=== PATIENT | male | born 1980 | race Caucasian/White ===

== ENCOUNTER 2018-04-02 22:00 | Emergency (ER) | payer BC ==
[2018-04-02 22:41] VITALS: BP 129/88; PULSE 79; RESP 18; TEMP 98.6
--- NOTE | 2018-04-02 23:18 | ED ---
Skin/Abscess/FB HPI - General Chief complaint: Skin/Abscess/Foreign Body Stated complaint: FB Butt Cheek Time Seen by Provider: 04/02/18 22:44 Source: patient Mode of arrival: ambulatory Limitations: no limitations - History of Present Illness Initial comments: 38-year-old male patient presents to the emergency department today for evaluation of possible foreign body to the right buttock. Patient states that he administered a testosterone injection and when he pulled the syringe away there no needle on it. Patient states that he did hear a weird click. Patient denies any significant pain to the site. States this is the first time he is instructed to testosterone. He denies any other physical symptoms or concerns. - Related Data Home Medications Medication Instructions Recorded Confirmed Buprenorphine HCl/Naloxone HCl 1 film SL BID 04/02/18 04/02/18 [Suboxone 8 mg-2 mg Sl Film] Lisdexamfetamine Dimesylate 50 mg PO QAM 04/02/18 04/02/18 [Vyvanse] Testosterone Cypionate 200 mg IM Q14D 04/02/18 04/02/18 [Depo-Testosterone] Allergies Allergy/AdvReac Type Severity Reaction Status Date / Time latex Allergy skin Verified 04/02/18 22:50 redness Review of Systems ROS Statement: Those systems with pertinent positive or pertinent negative responses have been documented in the HPI. ROS Other: All systems not noted in ROS Statement are negative. Past Medical History Past Medical History: GERD/Reflux Additional Past Medical History / Comment(s): "HAVING A HARD TIME HAVING STOOL & WITH BLEEDING WITH STOOLS,HAVING A HARD TIME URINATING History of Any Multi-Drug Resistant Organisms: None Reported Past Surgical History: Hernia Repair Past Anesthesia/Blood Transfusion Reactions: No Reported Reaction Past Psychological History: No Psychological Hx Reported Smoking Status: Former smoker Past Alcohol Use History: None Reported Past Drug Use History: None Reported, Opiates - Past Family History Mother Family Medical History: Myocardial Infarction ([place]) Father Additional Family Medical History / Comment(s): ALCOHOLISM General Exam Limitations: no limitations General appearance: alert, in no apparent distress, other (So well-developed, well-nourished adult male patient in no acute distress. Vital signs upon presentation are temperature 98.6F, pulse 79, respirations 18, blood pressure 129/88, pulse ox 98% on room air.) Eye exam: Present: normal appearance, PERRL, EOMI. Absent: scleral icterus, conjunctival injection, periorbital swelling ENT exam: Present: normal exam, normal oropharynx, mucous membranes moist Respiratory exam: Present: normal lung sounds bilaterally. Absent: respiratory distress, wheezes, rales, rhonchi, stridor Cardiovascular Exam: Present: regular rate, normal rhythm, normal heart sounds. Absent: systolic murmur, diastolic murmur, rubs, gallop, clicks Neurological exam: Present: alert, oriented X3, CN II-XII intact Psychiatric exam: Present: normal affect, normal mood Skin exam: Present: warm, dry, intact, normal color, other (Inspection to the right buttock is within normal limits.). Absent: rash Course Vital Signs 04/02/18 22:36 Temperature 98.6 F Pulse Rate 79 Respiratory 18 Rate Blood Pressure 129/88 O2 Sat by Pulse 98 Oximetry Medical Decision Making - Medical Decision Making 38-year-old male patient presents the emergency department today for evaluation of possible foreign body to the right gluteus. The patient self-administered a testosterone injection. Appears that his syringe is a sulfur tracting syringe. We did perform x-ray showed no radiopaque foreign body. He is instructed to follow-up with his primary doctor for recheck in 1-2 days. Return parameters discussed in detail. He verbalizes understanding and agrees this plan. - Radiology Data Radiology results: report reviewed, image reviewed Single view of the pelvis was obtained. Findings show pelvic ring is intact. Proximal femurs and hip joints appear normal. I see no evidence for radiopaque foreign body. Impression by Dr. Núñez shows no foreign body seen. Disposition Clinical Impression: Feared condition not demonstrated Disposition: HOME SELF-CARE Condition: Good Additional Instructions: There is no evidence of needle on your x-ray. Most likely the needle retracted. Follow-up with your primary care physician for recheck in 1-2 days. Return here immediately for any new, worsening, or concerning symptoms. Is patient prescribed a controlled substance at d/c from ED?: No Referrals: Dayton Welch MD [Primary Care Provider] - 1-2 days Time of Disposition: 23:35
--- NOTE | 2018-04-02 23:27 | XR ---
Pelvis single view. History possible foreign body. Comparison none. FINDINGS: Pelvic ring is intact. Proximal femurs and hip joints appear normal. I see no evidence of radiopaque foreign body. IMPRESSION: No foreign body seen.
== END 2018-04-02 23:47 | disposition home or self-care (01) ==
LOC: EC 22:00
DX: Z71.1 Person with feared health complaint in whom no diagnosis is made (principal); Z87.891 Personal history of nicotine dependence; Z79.899 Other long term (current) drug therapy; Z91.040 Latex allergy status
CPT/HCPCS: 99283

== ENCOUNTER 2019-09-22 09:16 | Emergency (ER) | payer SELFPAY ==
[2019-09-22 09:30] VITALS: BP 125/82; PULSE 90; RESP 18; TEMP 97.5
--- NOTE | 2019-09-22 09:48 | ED ---
ENT HPI - General Chief complaint: ENT Stated complaint: throat pain Time Seen by Provider: 09/22/19 09:35 Source: patient, RN notes reviewed Mode of arrival: ambulatory Limitations: no limitations - History of Present Illness Initial comments: 39-year-old male presents emergency Department with chief complaint of sore throat. Patient's pain has been present for last few days. No known fever but states that his cold. No nasal congestion, ear pain, headache or dizziness no difficulty swallowing states he tried multiple [id number] medications with no relief. - Related Data Home Medications Medication Instructions Recorded Confirmed Buprenorphine HCl/Naloxone HCl 1 film SL BID 04/02/18 04/02/18 [Suboxone 8 mg-2 mg Sl Film] Lisdexamfetamine Dimesylate 50 mg PO QAM 04/02/18 04/02/18 [Vyvanse] Testosterone Cypionate 200 mg IM Q14D 04/02/18 04/02/18 [Depo-Testosterone] Previous Rx's Medication Instructions Recorded Amoxicillin 500 mg PO Q8H #30 capsule 09/22/19 Allergies Allergy/AdvReac Type Severity Reaction Status Date / Time latex Allergy skin Verified 09/22/19 09:27 redness Review of Systems ROS Statement: Those systems with pertinent positive or pertinent negative responses have been documented in the HPI. ROS Other: All systems not noted in ROS Statement are negative. Past Medical History Past Medical History: GERD/Reflux Additional Past Medical History / Comment(s): "HAVING A HARD TIME HAVING STOOL & WITH BLEEDING WITH STOOLS,HAVING A HARD TIME URINATING History of Any Multi-Drug Resistant Organisms: None Reported Past Surgical History: Hernia Repair Past Anesthesia/Blood Transfusion Reactions: No Reported Reaction Past Psychological History: No Psychological Hx Reported Smoking Status: Former smoker Past Alcohol Use History: Occasional Past Drug Use History: None Reported, Opiates - Past Family History Mother Family Medical History: Myocardial Infarction ([place]) Father Additional Family Medical History / Comment(s): ALCOHOLISM General Exam Limitations: no limitations General appearance: alert, in no apparent distress Head exam: Present: atraumatic, normocephalic, normal inspection Eye exam: Present: normal appearance, PERRL, EOMI. Absent: scleral icterus, conjunctival injection, periorbital swelling ENT exam: Present: mucous membranes moist, TM's normal bilaterally, normal external ear exam. Absent: normal oropharynx (Erythema, sores noted) Neck exam: Present: normal inspection, full ROM, lymphadenopathy. Absent: tenderness, meningismus Respiratory exam: Present: normal lung sounds bilaterally. Absent: respiratory distress, wheezes, rales, rhonchi, stridor Cardiovascular Exam: Present: regular rate, normal rhythm, normal heart sounds. Absent: systolic murmur, diastolic murmur, rubs, gallop, clicks Course Vital Signs 09/22/19 09:28 Temperature 97.5 F L Pulse Rate 90 Respiratory 18 Rate Blood Pressure 125/82 O2 Sat by Pulse 99 Oximetry Medical Decision Making - Medical Decision Making Patient was treated with amoxicillin for strep pharyngitis. Patient advised to continue time Motrin saw or gargles return parameters were discussed. Disposition Clinical Impression: Acute pharyngitis Disposition: HOME SELF-CARE Condition: Stable Instructions (If sedation given, give patient instructions): Pharyngitis (ED) Additional Instructions: Please return to the Emergency Department if symptoms worsen or any other concerns. Prescriptions: Amoxicillin 500 mg PO Q8H #30 capsule Is patient prescribed a controlled substance at d/c from ED?: No Referrals: Dayton Welch MD [Primary Care Provider] - 1-2 days Time of Disposition: 09:48
== END 2019-09-22 09:51 | disposition home or self-care (01) ==
LOC: EC 09:16
DX: J02.9 Acute pharyngitis, unspecified (principal); Z87.891 Personal history of nicotine dependence; Z91.040 Latex allergy status; Z79.890 Hormone replacement therapy
CPT/HCPCS: 99282

== ENCOUNTER 2020-03-27 16:37 | Emergency (ER) | payer OTHER ==
[2020-03-27] MEDS ORDERED: LORazepam 2 MG/ML INJ IV PRN ×3 (17:00)
[2020-03-27] MEDS ORDERED: SODIUM CHLORIDE 0.9% 1,000 ML IV STA (17:00)
[2020-03-27] MEDS ORDERED: LORazepam 2 MG/ML INJ IV STA (17:00)
[2020-03-27] MEDS ORDERED: THIAMINE 100 MG/ML 2 ML VIAL IM STA (17:00)
--- NOTE | 2020-03-27 17:05 | ED ---
General Adult HPI - General Chief complaint: Alcohol Stated complaint: detox Time Seen by Provider: 03/27/20 16:44 Source: patient, RN notes reviewed, old records reviewed Mode of arrival: ambulatory Limitations: no limitations - History of Present Illness Initial comments: 40-year-old male patient presents to ED for evaluation of alcohol addiction. Patient reports that he previously had issues with alcohol over he stopping for a long time however he began drinking for the last 5 months. He reports that he was drinking about a fifth a day for the last week. Reports that he tried to stop the last few days however has been having a lot of issues with shaking and he also gets very nauseous and some vomiting. He denies ever having seizures before. Denies any recent falls or trauma or any other drug use. Denies any other complaints. Systemic: Pt denies fatigue, fever/chills, rash. Pt denies weakness, night sweats, weight loss. Neuro: Pt denies headache, visual disturbances, syncope or pre-syncope. HEENT: Pt denies ocular discharge or irritation, otalgia, rhinorrhea, pharyngitis or notable lymphadenopathy. Cardiopulmonary: Pt denies chest pain, SOB, heart palpitations, dyspnea on exertion. Abdominal/GI: Pt denies abdominal pain, diarrhea. : Pt denies dysuria, burning w/ urination, frequency/urgency. Denies new onset urinary or bowel incontinence. MSK: Pt denies myalgia, loss of strength or function in extremities. Neuro: Pt denies new onset weakness, paresthesias. - Related Data Home Medications Medication Instructions Recorded Confirmed Citalopram Hydrobromide [CeleXA] 40 mg PO DAILY 03/27/20 03/27/20 diazePAM [Valium] 5 mg PO DAILY 03/27/20 03/27/20 Previous Rx's Medication Instructions Recorded Potassium Chloride ER [K-Dur 20] 20 meq PO DAILY 3 Days #3 tab 03/27/20 chlordiazePOXIDE HCl [Librium] 25 mg PO DIRECTED #20 capsule 03/27/20 Allergies Allergy/AdvReac Type Severity Reaction Status Date / Time latex Allergy Rash/Hives Verified 03/27/20 17:37 Review of Systems ROS Statement: Those systems with pertinent positive or pertinent negative responses have been documented in the HPI. ROS Other: All systems not noted in ROS Statement are negative. Past Medical History Past Medical History: GERD/Reflux Additional Past Medical History / Comment(s): "HAVING A HARD TIME HAVING STOOL & WITH BLEEDING WITH STOOLS,HAVING A HARD TIME URINATING History of Any Multi-Drug Resistant Organisms: None Reported Past Surgical History: Hernia Repair Past Anesthesia/Blood Transfusion Reactions: No Reported Reaction Past Psychological History: No Psychological Hx Reported Smoking Status: Current every day smoker Past Alcohol Use History: Daily, Heavy Past Drug Use History: None Reported, Opiates - Past Family History Mother Family Medical History: Myocardial Infarction (ID) Father Additional Family Medical History / Comment(s): ALCOHOLISM General Exam - General Exam Comments Initial Comments: Constitutional: NAD, AOX3, Pt has pleasant affect. HEENT: NC/AT, trachea midline, neck supple, no lymphadenopathy. Posterior phar ynx non erythematous, without exudates. External ears appear normal, without discharge. Mucous membranes moist. Eyes PERRLA, EOM intact. There is no scleral icterus. No pallor noted. Cardiopulmonary: RRR, no murmurs, rubs or gallops, no JVD noted. Lungs CTAB in anterior and posterior de [place]ant[place]. No peripheral edema. Abdominal exam: Abdomen soft and non-distended. No focal area of tenderness. Antoine sign negative.. Bowel sounds active in LLQ. No hepatosplenomegaly. No ecchymosis Neuro: CN II-XII grossly intact. No nuchal rigidity. No raccon eyes, no han sign, no hemotympanum. No cervical spinal tenderness. MSK: No posterior calf tenderness bilaterally, homans sign negative bilaterally. Posterior tibialis and radial pulse +2 bilaterally. Sensation intact in upper and lower extremities. Full active ROM in upper and lower extremities, 5/5 stregnth. Limitations: no limitations Course Vital Signs 03/27/20 03/27/20 03/27/20 16:40 17:43 19:25 Temperature 99.1 F 98.2 F Pulse Rate 100 83 86 Respiratory 18 16 18 Rate Blood Pressure 136/94 131/97 127/84 O2 Sat by Pulse 99 98 96 Oximetry 03/27/20 20:40 Temperature 98.3 F Pulse Rate 78 Respiratory 16 Rate Blood Pressure 121/91 O2 Sat by Pulse 96 Oximetry Medical Decision Making - Medical Decision Making 40-year-old male patient presents to ED for evaluation of alcohol withdrawals. Patient reports that he last drank yesterday. Patient reports that he is feeling somewhat tremulous at the nausea and vomiting earlier today. Denies any other complaints at this time. Physical exam didn't display patient to have mild tremulousness. Laboratory investigations revealed mild hyponatremia hypokalemia. The testing was supplemented [facility]. Mild transaminitis is noted. Serum alcohol is negative. Patient is feeling much improved. I did recommend patient hospital admission pt is declining. Patient reports that his girlfriend is a strong support system and will monitor him at home. Patient discharged with Librium as well as potassium supplementation. He was provided information for a local rehabilitationt facility. Denies any other complaints at this time. Case discussed with Dr. Tejada. - Lab Data Result diagrams: 03/27/20 17:02 03/27/20 17:02 Lab Results 03/27/20 03/27/20 03/27/20 Range/Units 17:02 17:02 17:08 WBC 9.4 (3.8-10.6) k/uL RBC 5.02 (4.30-5.90) m/uL Hgb 17.2 (13.0-17.5) gm/dL Hct 47.3 (39.0-53.0) % MCV 94.3 (80.0-100.0) fL MCH 34.2 (25.0-35.0) pg MCHC 36.3 (31.0-37.0) g/dL RDW 14.8 (11.5-15.5) % Plt Count 223 (150-450) k/uL Neutrophils % 85 % Lymphocytes % 5 % Monocytes % 8 % Eosinophils % 1 % Basophils % 0 % Neutrophils # 7.9 H (1.3-7.7) k/uL Lymphocytes # 0.5 L (1.0-4.8) k/uL Monocytes # 0.8 (0-1.0) k/uL Eosinophils # 0.1 (0-0.7) k/uL Basophils # 0.0 (0-0.2) k/uL Sodium 132 L (137-145) mmol/L Potassium 2.9 L (3.5-5.1) mmol/L Chloride 90 L (98-107) mmol/L Carbon Dioxide 29 (22-30) mmol/L Anion Gap 13 mmol/L BUN 11 (9-20) mg/dL Creatinine 0.65 L (0.66-1.25) mg/dL Est GFR (CKD-EPI)AfAm >90 (>60 ml/min/1.73 sqM) Est GFR (CKD-EPI)NonAf >90 (>60 ml/min/1.73 sqM) Glucose 115 H (74-99) mg/dL POC Glucose (mg/dL) 113 H (75-99) mg/dL POC Glu Election Supervisor ID Kait Medina Calcium 9.8 (8.4-10.2) mg/dL Phosphorus 2.6 (2.5-4.5) mg/dL Magnesium 1.8 (1.6-2.3) mg/dL Total Bilirubin 1.6 H (0.2-1.3) mg/dL AST 63 H (17-59) U/L ALT 67 H (4-49) U/L Alkaline Phosphatase 169 H (38-126) U/L Total Protein 8.0 (6.3-8.2) g/dL Albumin 4.5 (3.5-5.0) g/dL Urine Color Urine Appearance (Clear) Urine pH (5.0-8.0) Ur Specific Harrison (1.001-1.035) Urine Protein (Negative) Urine Glucose (UA) (Negative) Urine Ketones (Negative) Urine Blood (Negative) Urine Nitrite (Negative) Urine Bilirubin (Negative) Urine Urobilinogen (<2.0) mg/dL Ur Leukocyte Esterase (Negative) Urine RBC (0-5) /hpf Urine WBC (0-5) /hpf Ur Squamous Epith Cells (0-4) /hpf Urine Mucus (None) /hpf Urine Opiates Screen (NotDetected) Ur Oxycodone Screen (NotDetected) Urine Methadone Screen (NotDetected) Ur Propoxyphene Screen (NotDetected) Ur Barbiturates Screen (NotDetected) U Tricyclic Antidepress (NotDetected) Ur Phencyclidine Scrn (NotDetected) Ur Amphetamines Screen (NotDetected) U Methamphetamines Scrn (NotDetected) U Benzodiazepines Scrn (NotDetected) Urine Cocaine Screen (NotDetected) U Marijuana (THC) Screen (NotDetected) Serum Alcohol <10 mg/dL 07/21/20 Range/Units 19:22 WBC (3.8-10.6) k/uL RBC (4.30-5.90) m/uL Hgb (13.0-17.5) gm/dL Hct (39.0-53.0) % MCV (80.0-100.0) fL MCH (25.0-35.0) pg MCHC (31.0-37.0) g/dL RDW (11.5-15.5) % Plt Count (150-450) k/uL Neutrophils % % Lymphocytes % % Monocytes % % Eosinophils % % Basophils % % Neutrophils # (1.3-7.7) k/uL Lymphocytes # (1.0-4.8) k/uL Monocytes # (0-1.0) k/uL Eosinophils # (0-0.7) k/uL Basophils # (0-0.2) k/uL Sodium (137-145) mmol/L Potassium (3.5-5.1) mmol/L Chloride (98-107) mmol/L Carbon Dioxide (22-30) mmol/L Anion Gap mmol/L BUN (9-20) mg/dL Creatinine (0.66-1.25) mg/dL Est GFR (CKD-EPI)AfAm (>60 ml/min/1.73 sqM) Est GFR (CKD-EPI)NonAf (>60 ml/min/1.73 sqM) Glucose (74-99) mg/dL POC Glucose (mg/dL) (75-99) mg/dL POC Glu Election Supervisor ID Calcium (8.4-10.2) mg/dL Phosphorus (2.5-4.5) mg/dL Magnesium (1.6-2.3) mg/dL Total Bilirubin (0.2-1.3) mg/dL AST (17-59) U/L ALT (4-49) U/L Alkaline Phosphatase (38-126) U/L Total Protein (6.3-8.2) g/dL Albumin (3.5-5.0) g/dL Urine Color Yellow Urine Appearance Clear (Clear) Urine pH 6.5 (5.0-8.0) Ur Specific Harrison 1.024 (1.001-1.035) Urine Protein 1+ H (Negative) Urine Glucose (UA) Negative (Negative) Urine Ketones 1+ H (Negative) Urine Blood Negative (Negative) Urine Nitrite Negative (Negative) Urine Bilirubin 1+ H (Negative) Urine Urobilinogen >12.0 (<2.0) mg/dL Ur Leukocyte Esterase Negative (Negative) Urine RBC <1 (0-5) /hpf Urine WBC 1 (0-5) /hpf Ur Squamous Epith Cells <1 (0-4) /hpf Urine Mucus Occasional H (None) /hpf Urine Opiates Screen Not Detected (NotDetected) Ur Oxycodone Screen Not Detected (NotDetected) Urine Methadone Screen Not Detected (NotDetected) Ur Propoxyphene Screen Not Detected (NotDetected) Ur Barbiturates Screen Not Detected (NotDetected) U Tricyclic Antidepress Not Detected (NotDetected) Ur Phencyclidine Scrn Not Detected (NotDetected) Ur Amphetamines Screen Not Detected (NotDetected) U Methamphetamines Scrn Not Detected (NotDetected) U Benzodiazepines Scrn Detected H (NotDetected) Urine Cocaine Screen Not Detected (NotDetected) U Marijuana (THC) Screen Not Detected (NotDetected) Serum Alcohol mg/dL Disposition Clinical Impression: Alcohol abuse, Hypokalemia Disposition: HOME SELF-CARE Condition: Stable Instructions (If sedation given, give patient instructions): Alcohol Withdrawal (ED) Additional Instructions: Follow-up with primary care provider tomorrow. I have provided you information for a local rehabilitation center at your request. Take the medication as directed for alcohol withdrawal. Return to ER if condition worsens. [facility]: [address] [facility], [address] P: [phone] F: [phone] Prescriptions: Potassium Chloride ER [K-Dur 20] 20 meq PO DAILY 3 Days #3 tab chlordiazePOXIDE HCl [Librium] 25 mg PO DIRECTED #20 capsule Is patient prescribed a controlled substance at d/c from ED?: No Referrals: Dayton Welch MD [Primary Care Provider] - 1-2 days
[2020-03-27 17:09] LABS: Glucose,Whole Blood 113 mg/dL (75-99)
[2020-03-27 17:15] LABS: Basophils % (A) 0 %; Eosinophils # (A) 0.1 k/uL (0-0.7); Eosinophils % (A) 1 %; HCT 47.3 % (39.0-53.0); HGB 17.2 gm/dL (13.0-17.5); Lymphocytes # (A) 0.5 k/uL (1.0-4.8); Lymphocytes % (A) 5 %; MCH 34.2 pg (25.0-35.0); MCHC 36.3 g/dL (31.0-37.0); MCV 94.3 fL (80.0-100.0); Monocytes # (A) 0.8 k/uL (0-1.0); Monocytes % (A) 8 %; Neutrophils # (A) 7.9 k/uL (1.3-7.7); Neutrophils % (A) 85 %; Platelet Count 223 k/uL (150-450); RBC 5.02 m/uL (4.30-5.90); RDW 14.8 % (11.5-15.5); WBC 9.4 k/uL (3.8-10.6)
[2020-03-27] MEDS ORDERED: ONDANSETRON 4 MG/2 ML VIAL IVP STA (17:18)
[2020-03-27 17:26] LABS: ALT 67 U/L (4-49); AST 63 U/L (17-59); African American GFR (CKD) >90 (>60 ml/min/1.73 sqM); Albumin 4.5 g/dL (3.5-5.0); Alcohol <10 mg/dL; Alkaline Phosphatase 169 U/L (38-126); Anion Gap 13 mmol/L; Blood Urea Nitrogen 11 mg/dL (9-20); Calcium 9.8 mg/dL (8.4-10.2); Carbon Dioxide 29 mmol/L (22-30); Chloride 90 mmol/L (98-107); Glucose 115 mg/dL (74-99); Magnesium 1.8 mg/dL (1.6-2.3); Non-African American GFR(CKD) >90 (>60 ml/min/1.73 sqM); Phosphorus 2.6 mg/dL (2.5-4.5); Potassium 2.9 mmol/L (3.5-5.1); Sodium 132 mmol/L (137-145); Total Bilirubin 1.6 mg/dL (0.2-1.3)
[2020-03-27] MEDS ORDERED: POTASSIUM CHLORIDE ER 20 MEQ TAB.ER PO STA (17:54)
[2020-03-27 20:07] LABS: Appearance,Urine Clear (Clear); Bilirubin,Urine 1+ (Negative); Blood,Urine Negative (Negative); Color,Urine Yellow; Glucose,Urine (UA) Negative (Negative); Ketones,Urine 1+ (Negative); Leukocyte Esterase,Urine Negative (Negative); Mucus,Urine Occasional /hpf; Nitrite,Urine Negative (Negative); PH, Urine 6.5 (5.0-8.0); Protein,Urine 1+ (Negative); RBC,Urine <1 /hpf (0-5); Specific Gravity,Urine 1.024 (1.001-1.035); Squamous Epithelial Cell,Urine <1 /hpf (0-4); Urobilinogen,Urine >12.0 mg/dL (<2.0); WBC,Urine 1 /hpf (0-5)
[2020-03-27] MEDS ORDERED: ONDANSETRON 4 MG ODT STARTER PACK 2 TAB BTL PO STA (20:10)
[2020-03-27 20:15] LABS: Amphetamine Screen,Urine Not Detected (NotDetected); Barbiturate Screen,Urine Not Detected (NotDetected); Benzodiazepines Screen,Urine Detected (NotDetected); Cocaine Screen,Urine Not Detected (NotDetected); Methadone Screen, Urine Not Detected (NotDetected); Opiate Screen,Urine Not Detected (NotDetected); Oxycodone Screen, Urine Not Detected (NotDetected); Phencyclidine Screen,Urine Not Detected (NotDetected); Tricyclic Antidepressant,Urine Not Detected (NotDetected); Urn Cannabinoid Scrn Not Detected (NotDetected)
[2020-03-27 20:41] VITALS: BP 121/91; PULSE 78; RESP 16; TEMP 98.3
[2020-03-28] MEDS ORDERED: THIAMINE 100 MG TAB PO SCH (07:30)
== END 2020-03-27 20:41 | disposition home or self-care (01) ==
LOC: EC 16:37
DX: F10.239 Alcohol dependence with withdrawal, unspecified (principal); E87.6 Hypokalemia; E87.1 Hypo-osmolality and hyponatremia; R74.0 Nonspecific elevation of levels of transaminase and lactic acid dehydrogenase [LDH]; F17.200 Nicotine dependence, unspecified, uncomplicated; Z91.040 Latex allergy status
CPT/HCPCS: 36415; 80053; 83735; 84100; 85025; 81001; 80306; 80320; 99284; 96374; 96375; 96376; 96372; 96361; J2060; J3411; J2405; S0119

== ENCOUNTER 2020-04-08 09:21 | Inpatient (IN) | payer OTHER ==
[2020-04-08] MEDS ORDERED: LORazepam 2 MG/ML INJ IV STA (09:41)
[2020-04-08] MEDS ORDERED: SODIUM CHLORIDE 0.9% 500 ML 500 ML IV STA (09:41)
[2020-04-08] MEDS ORDERED: THIAMINE 100 MG/ML 2 ML VIAL IM STA ×2 (09:41→10:21)
--- NOTE | 2020-04-08 09:54 | ED ---
General Adult HPI - General Chief complaint: Alcohol Stated complaint: Detox Time Seen by Provider: 04/08/20 09:29 Source: patient, RN notes reviewed, old records reviewed Mode of arrival: ambulatory Limitations: no limitations - History of Present Illness Initial comments: 40-year-old male patient presents to ED for chief complaint of alcohol abuse and withdrawal. He reports that he has drank about 3 white claws this morning. He reports that he is a daily drinker. Also reports that for the last 3 days he has been having some nausea vomiting and diarrhea. GENERALIZED ABDOMINAL ACHING. He denies any other acute complaints. He states that he is supposed to go to rehabilitation the next day or 2. Systemic: Pt denies fatigue, fever/chills, rash. Pt denies weakness, night sweats, weight loss. Neuro: Pt denies headache, visual disturbances, syncope or pre-syncope. HEENT: Pt denies ocular discharge or irritation, otalgia, rhinorrhea, pharyng itis or notable lymphadenopathy. Cardiopulmonary: Pt denies chest pain, SOB, heart palpitations, dyspnea on exertion. : Pt denies dysuria, burning w/ urination, frequency/urgency. Denies new onset urinary or bowel incontinence. MSK: Pt denies myalgia, loss of strength or function in extremities. Neuro: Pt denies new onset weakness, paresthesias. - Related Data Home Medications Medication Instructions Recorded Confirmed Citalopram Hydrobromide [CeleXA] 40 mg PO DAILY 03/27/20 03/27/20 diazePAM [Valium] 5 mg PO DAILY 03/27/20 03/27/20 Previous Rx's Medication Instructions Recorded Potassium Chloride ER [K-Dur 20] 20 meq PO DAILY 3 Days #3 tab 03/27/20 chlordiazePOXIDE HCl [Librium] 25 mg PO DIRECTED #20 capsule 03/27/20 Allergies Allergy/AdvReac Type Severity Reaction Status Date / Time latex Allergy Rash/Hives Verified 04/08/20 09:27 Review of Systems ROS Statement: Those systems with pertinent positive or pertinent negative responses have been documented in the HPI. ROS Other: All systems not noted in ROS Statement are negative. Past Medical History Past Medical History: GERD/Reflux Additional Past Medical History / Comment(s): alcoholism History of Any Multi-Drug Resistant Organisms: None Reported Past Surgical History: Hernia Repair Past Anesthesia/Blood Transfusion Reactions: No Reported Reaction Past Psychological History: No Psychological Hx Reported Smoking Status: Current every day smoker Past Alcohol Use History: Abuse, Daily, Heavy Past Drug Use History: None Reported, Opiates - Past Family History Mother Family Medical History: Myocardial Infarction ([place]) Father Additional Family Medical History / Comment(s): ALCOHOLISM General Exam - General Exam Comments Initial Comments: Constitutional: NAD, AOX3, Pt has pleasant affect. HEENT: NC/AT, trachea midline, neck supple, no lymphadenopathy. Posterior pharynx non erythematous, without exudates. External ears appear normal, without discharge. Mucous membranes moist. Eyes PERRLA, EOM intact. There is no scleral icterus. No pallor noted. Cardiopulmonary: RRR, no murmurs, rubs or gallops, no JVD noted. Lungs CTAB in anterior and posterior de [place]. No peripheral edema. Abdominal exam: Abdomen soft and non-distended. Abdomen non-tender to palpation in all 4 quadrants. Bowel sounds active in LLQ. No hepatosplenomegaly. No ecchymosis Neuro: CN II-XII intact. No nuchal rigidity. No raccon eyes, no han sign, no hemotympanum. No cervical spinal tenderness. MSK: No posterior calf tenderness bilaterally, homans sign negative bilaterally. Posterior tibialis and radial pulse +2 bilaterally. Sensation intact in upper and lower extremities. Full active ROM in upper and lower extremities, 5/5 stregnth. Limitations: no limitations Course Vital Signs 04/08/20 09:25 Temperature 98.7 F Pulse Rate 74 Respiratory 18 Rate Blood Pressure 110/77 O2 Sat by Pulse 100 Oximetry Medical Decision Making - Medical Decision Making 40-year-old male patient history of alcohol abuse presents to ED for nausea vomiting diarrhea, withdrawals. Patient reports that he is feeling somewhat tremulous. Patient vital signs are stable, afebrile. Physical exam did not dis play acute pathology. Asthma soft and nontender. Patient was not treatments on exam. Labs investigations are significant for elevated lipase of 1100 just with acute pancreatitis. Mag 1.5. Patient be admitted for acute pancreatitis. Case discussed with Dr. Mott. - Lab Data Result diagrams: 04/08/20 09:51 04/08/20 09:51 Lab Results 04/08/20 04/08/20 Range/Units 09:51 09:51 WBC 7.9 (3.8-10.6) k/uL RBC 4.68 (4.30-5.90) m/uL Hgb 15.2 (13.0-17.5) gm/dL Hct 43.6 (39.0-53.0) % MCV 93.1 (80.0-100.0) fL MCH 32.5 (25.0-35.0) pg MCHC 34.9 (31.0-37.0) g/dL RDW 14.2 (11.5-15.5) % Plt Count 112 L (150-450) k/uL Neutrophils % 81 % Lymphocytes % 11 % Monocytes % 5 % Eosinophils % 1 % Basophils % 0 % Neutrophils # 6.4 (1.3-7.7) k/uL Lymphocytes # 0.9 L (1.0-4.8) k/uL Monocytes # 0.4 (0-1.0) k/uL Eosinophils # 0.1 (0-0.7) k/uL Basophils # 0.0 (0-0.2) k/uL Sodium 137 (137-145) mmol/L Potassium 3.5 (3.5-5.1) mmol/L Chloride 101 (98-107) mmol/L Carbon Dioxide 25 (22-30) mmol/L Anion Gap 11 mmol/L BUN 8 L (9-20) mg/dL Creatinine 0.71 (0.66-1.25) mg/dL Est GFR (CKD-EPI)AfAm >90 (>60 ml/min/1.73 sqM) Est GFR (CKD-EPI)NonAf >90 (>60 ml/min/1.73 sqM) Glucose 93 (74-99) mg/dL Calcium 8.9 (8.4-10.2) mg/dL Phosphorus 1.7 L (2.5-4.5) mg/dL Magnesium 1.5 L (1.6-2.3) mg/dL Total Bilirubin 1.4 H (0.2-1.3) mg/dL AST 60 H (17-59) U/L ALT 47 (4-49) U/L Alkaline Phosphatase 100 (38-126) U/L Total Protein 6.9 (6.3-8.2) g/dL Albumin 3.8 (3.5-5.0) g/dL Lipase 1131 H (23-300) U/L Serum Alcohol 67 mg/dL Disposition Clinical Impression: Pancreatitis, Alcohol withdrawal Disposition: ADMITTED IP TO THIS HOSP Condition: Serious Is patient prescribed a controlled substance at d/c from ED?: No Referrals: Dayton Welch MD [Primary Care Provider] - 1-2 days
[2020-04-08 10:06] LABS: Basophils % (A) 0 %; Eosinophils # (A) 0.1 k/uL (0-0.7); Eosinophils % (A) 1 %; HCT 43.6 % (39.0-53.0); HGB 15.2 gm/dL (13.0-17.5); Lymphocytes # (A) 0.9 k/uL (1.0-4.8); Lymphocytes % (A) 11 %; MCH 32.5 pg (25.0-35.0); MCHC 34.9 g/dL (31.0-37.0); MCV 93.1 fL (80.0-100.0); Mean Platelet Volume 8.3; Monocytes # (A) 0.4 k/uL (0-1.0); Monocytes % (A) 5 %; Neutrophils # (A) 6.4 k/uL (1.3-7.7); Neutrophils % (A) 81 %; Platelet Count 112 k/uL (150-450); RBC 4.68 m/uL (4.30-5.90); RDW 14.2 % (11.5-15.5); WBC 7.9 k/uL (3.8-10.6)
[2020-04-08 10:14] LABS: ALT 47 U/L (4-49); AST 60 U/L (17-59); African American GFR (CKD) >90 (>60 ml/min/1.73 sqM); Albumin 3.8 g/dL (3.5-5.0); Alcohol 67 mg/dL; Alkaline Phosphatase 100 U/L (38-126); Anion Gap 11 mmol/L; Blood Urea Nitrogen 8 mg/dL (9-20); Calcium 8.9 mg/dL (8.4-10.2); Carbon Dioxide 25 mmol/L (22-30); Chloride 101 mmol/L (98-107); Glucose 93 mg/dL (74-99); Magnesium 1.5 mg/dL (1.6-2.3); Non-African American GFR(CKD) >90 (>60 ml/min/1.73 sqM); Phosphorus 1.7 mg/dL (2.5-4.5); Potassium 3.5 mmol/L (3.5-5.1); Sodium 137 mmol/L (137-145); Total Bilirubin 1.4 mg/dL (0.2-1.3); Total Protein 6.9 g/dL (6.3-8.2)
[2020-04-08] MEDS ORDERED: LORazepam 2 MG/ML INJ IV PRN ×2 (10:21)
[2020-04-08] MEDS ORDERED: MAGNESIUM OXIDE 400 MG TAB PO STA (10:27)
[2020-04-08] MEDS ORDERED: NALOXONE 0.4 MG/ML 1 ML VIAL IV PRN (10:28)
[2020-04-08] MEDS ORDERED: SODIUM CHLORIDE 0.9% 1,000 ML IV SCH (10:30)
[2020-04-08] MEDS ORDERED: SODIUM CHLORIDE 0.9% 500 ML 500 ML IV ONE (10:30)
[2020-04-08] MEDS ORDERED: SODIUM CHLORIDE 0.9% 1,000 ML IV ONE (10:30)
[2020-04-08 11:27] LABS: Glucose,Whole Blood 85 mg/dL (75-99)
[2020-04-08] MEDS ORDERED: METOPROLOL TARTRATE 12.5 MG TAB PO SCH (13:46)
[2020-04-08] MEDS: diazePAM 5 MG TAB PO SCH ×2 (15:14→21:49)
[2020-04-08] MEDS: METOPROLOL TARTRATE 12.5 MG TAB PO SCH ×2 (15:14→21:49)
[2020-04-08] MEDS: ENOXAPARIN 40 MG/0.4 ML SYRINGE SQ SCH (15:15)
--- NOTE | 2020-04-08 15:50 | P.HPIM ---
History of Present Illness H&P Date: 04/08/20 Chief Complaint: Nausea vomiting abdominal pain History of presenting complaint: This is a 40-year-old patient of Dr. lunsford from [place]. Patient has been on Suboxone last 6 years for opioid abuse prior to that. Patient has been sober from alcohol for 7 years. 3 months ago patient relapsed and started drinking. Appointment today. It was working at [employer] and I wasn't compared back to 16 hours a week. Patient now presents with 1 week of nausea vomiting for a week. Upper abdominal pain. All sets of intermittent diarrhea. Also had some fever and chills. I gone down. He is rather shaky and an anxious. He has been prescribed 8 mg Suboxone tablets that she cut into smaller pieces to get his correct dose. Review of systems: GEN.: Tired EYES: None HEENT: None NECK: None RESPIRATORY: None CARDIOVASCULAR: None GASTROINTESTINAL: As above GENITOURINARY: None MUSCULOSKELETAL: None LYMPHATICS: None HEMATOLOGICAL: None PSYCHIATRY: Anxious NEUROLOGICAL: None Past medical history to include: Opioid abuse, alcoholism Social history: Patient chews tobacco-prior to that smoked for 13 years about a pack a day.. Did opioid abuse in the past has been on Suboxone for 6 years. Currently unemployed. Was working at [employer]. Lives alone. History of alcoholism none in the last 4 years. Except last 3 months Physical examination: VITAL SIGNS: 98.7, 74, 18, 110/77, 100% on room air GENERAL: BMI 21.5, sitting on bed, slightly jittery. EYES: Pupils equal. Conjunctiva normal. HEENT: External appearance of nose and ears normal, oral cavity grossly normal. NECK: JVD not raised; masses not palpable. HEART: First and second heart sounds are normal; no edema. LUNGS: Respiratory rate normal; clear to auscultation. ABDOMEN: Soft, mild epigastric tenderness, no guarding rigidity, liver spleen not palpable, no masses palpable. PSYCH: [Alert and oriented x3; mood and affect anxious l. NEUROLOGICAL: Cranial nerves grossly intact; no facial asymmetry, power and sensation grossly intact. Minimal tremors LYMPHATICS: No lymph nodes palpable in the axilla and neck INVESTIGATIONS, reviewed in the clinical context: White count 7.9 hemoglobin 15.2 platelets 112 potassium 3.518 creatinine 0.71 phosphorus 1.7 magnesium 1.5 AST 60 ALT 47 Lipase 1131 serum alcohol 67 Assessment: -Acute alcoholic pancreatitis -Alcohol use disorder with alcohol dependence -Early alcohol withdrawal syndrome -Hypomagnesemia, hypophosphatemia -Alcoholic hepatitis -Thrombocytopenia due to alcoholism -Chewing tobacco dependence Plan: For the alcohol withdrawal syndrome patient be started on Valium 5 mg every 8 hours. Also add Lopressor 12.5 mg 3 times a day to cut back on the sympathetic drive. Lovenox for DVT prophylaxis. Nicotine patch. IV fluids. No form of D5W. Lipase magnesium and phosphorus. CIWA scale. Care was discussed with the patient question and answer Past Medical History Past Medical History: GERD/Reflux Additional Past Medical History / Comment(s): alcoholism History of Any Multi-Drug Resistant Organisms: None Reported Past Surgical History: Hernia Repair Past Anesthesia/Blood Transfusion Reactions: No Reported Reaction Past Psychological History: No Psychological Hx Reported Smoking Status: Current every day smoker Past Alcohol Use History: Abuse, Daily, Heavy Additional Past Alcohol Use History / Comment(s): SMOKED FOR 13 YRS -1PPD,HX ALCOHOLISM-NONE IN LAST 4 YRS Past Drug Use History: None Reported, Opiates Additional Drug Use History / Comment(s): NO OPIATE USE LAST 4 YRS - Past Family History Mother Family Medical History: Myocardial Infarction ([place]) Father Additional Family Medical History / Comment(s): ALCOHOLISM Medications and Allergies Home Medications Medication Instructions Recorded Confirmed Type No Known Home Medications 04/08/20 04/08/20 History Allergies Allergy/AdvReac Type Severity Reaction Status Date / Time latex Allergy Rash/Hives Verified 04/08/20 10:52 Physical Exam Vitals: Vital Signs Temp Pulse Pulse Resp BP BP Pulse Ox 04/08/20 14:07 62 18 04/08/20 13:40 98.8 F 62 18 142/84 98 04/08/20 11:03 98.7 F 70 18 119/75 100 04/08/20 10:27 18 04/08/20 09:27 18 04/08/20 09:25 98.7 F 74 18 110/77 100 Intake and Output 04/08/20 04/08/20 04/08/20 06:59 14:59 22:59 Intake Total 300 Balance 300 Intake: Intake, IV Titration 300 Amount Sodium Chloride 0.9% 1, 300 000 ml @ 130 mls/hr IV . Q7H42M ANASTACIO Rx#:[id number] Other: Weight 68.039 kg Results CBC & Chem 7: 04/08/20 09:51 04/08/20 09:51 Labs: Abnormal Lab Results - Last 24 Hours (Table) 04/08/20 04/08/20 Range/Units 09:51 09:51 Plt Count 112 L (150-450) k/uL Lymphocytes # 0.9 L (1.0-4.8) k/uL BUN 8 L (9-20) mg/dL Phosphorus 1.7 L (2.5-4.5) mg/dL Magnesium 1.5 L (1.6-2.3) mg/dL Total Bilirubin 1.4 H (0.2-1.3) mg/dL AST 60 H (17-59) U/L Lipase 1131 H (23-300) U/L Thrombosis Risk Factor Assmnt - Choose All That Apply Any of the Below Risk Factors Present?: No
[2020-04-08] MEDS: CALCIUM CARBONATE LIQUID 500 MG/5 ML CUP PO SCH ×2 (17:10→21:49)
[2020-04-08] MEDS: THIAMINE 100 MG TAB PO SCH (17:10)
[2020-04-08] MEDS: PANTOPRAZOLE 40 MG TABLET PO SCH (17:10)
[2020-04-08] MEDS: MAGNESIUM OXIDE 400 MG TAB PO SCH ×2 (17:10→21:49)
[2020-04-08] MEDS: DEXTROSE 5%-0.45% NACL 1,000 ML IV SCH ×2 (17:10→23:43)
[2020-04-08] MEDS: NICOTINE 21MG/24HR PATCH TRANSDERM SCH (17:10)
[2020-04-08] MEDS: POTAS-SOD-PHOS 278-164-250 MG 1 EACH PACKET PO SCH ×2 (17:59→21:48)
[2020-04-08] MEDS: LORazepam 2 MG/ML INJ IV PRN (19:59)
[2020-04-08] MEDS: MORPHINE SULFATE 4 MG/ML SYRINGE IV PRN (20:04)
[2020-04-08 21:07] LABS: Appearance,Urine Clear (Clear); Bilirubin,Urine Negative (Negative); Blood,Urine Negative (Negative); Color,Urine Yellow; Glucose,Urine (UA) Negative (Negative); Ketones,Urine 1+ (Negative); Leukocyte Esterase,Urine Negative (Negative); Nitrite,Urine Negative (Negative); Protein,Urine Negative (Negative); Specific Gravity,Urine 1.015 (1.001-1.035)
[2020-04-09] MEDS: MORPHINE SULFATE 4 MG/ML SYRINGE IV PRN ×4 (02:35→20:24)
[2020-04-09] MEDS: LORazepam 2 MG/ML INJ IV PRN ×5 (04:29→22:34)
[2020-04-09] MEDS: diazePAM 5 MG TAB PO SCH ×3 (05:59→21:37)
[2020-04-09] MEDS: DEXTROSE 5%-0.45% NACL 1,000 ML IV SCH ×3 (05:59→19:43)
[2020-04-09 07:26] LABS: African American GFR (CKD) >90 (>60 ml/min/1.73 sqM); Anion Gap 5 mmol/L; Blood Urea Nitrogen 4 mg/dL (9-20); Carbon Dioxide 26 mmol/L (22-30); Chloride 105 mmol/L (98-107); Non-African American GFR(CKD) >90 (>60 ml/min/1.73 sqM); Sodium 136 mmol/L (137-145)
[2020-04-09] MEDS: METOPROLOL TARTRATE 12.5 MG TAB PO SCH ×3 (07:37→21:38)
[2020-04-09] MEDS: ENOXAPARIN 40 MG/0.4 ML SYRINGE SQ SCH (07:37)
[2020-04-09] MEDS: MAGNESIUM OXIDE 400 MG TAB PO SCH ×3 (07:37→21:37)
[2020-04-09] MEDS: THIAMINE 100 MG TAB PO SCH ×2 (07:37→16:48)
[2020-04-09] MEDS: NICOTINE 21MG/24HR PATCH TRANSDERM SCH (07:37)
[2020-04-09] MEDS: PANTOPRAZOLE 40 MG TABLET PO SCH ×2 (07:38→16:48)
[2020-04-09] MEDS: CALCIUM CARBONATE LIQUID 500 MG/5 ML CUP PO SCH ×4 (07:38→20:23)
[2020-04-09 07:49] LABS: Calcium 8.4 mg/dL (8.4-10.2); Glucose 99 mg/dL (74-99); Magnesium 1.6 mg/dL (1.6-2.3); Phosphorus 2.1 mg/dL (2.5-4.5); Potassium 3.3 mmol/L (3.5-5.1)
--- NOTE | 2020-04-09 20:58 | P.PN ---
Progress Note - Text Progress Note Date: 04/09/20 Chief Complaint: Nausea vomiting abdominal pain History of presenting complaint: This is a 40-year-old patient of Dr. lunsford from [place]. Patient has been on Suboxone last 6 years for opioid abuse prior to that. Patient has been sober from alcohol for 7 years. 3 months ago patient relapsed and started drinking. Appointment today. It was working at [employer] and I wasn't compared back to 16 hours a week. Patient now presents with 1 week of nausea vomiting for a week. Upper abdominal pain. All sets of intermittent diarrhea. Also had some fever and chills. I gone down. He is rather shaky and an anxious. He has been prescribed 8 mg Suboxone tablets that she cut into smaller pieces to get his correct dose. Admitted with acute alcoholic pancreatitis, alcohol use disorder early alcohol withdrawal syndrome. Patient is made nothing by mouth. Started in IV fluids. On Valium and CIWA scale. Today-feeling a bit better. Pain Still Present. No Nausea or Vomiting. Appears More Calm. Review of systems: Was done for constitutional, cardiovascular, GI, pulmonary. relevant finding as above Active Medications Calcium Carbonate/Glycine (Tums Liquid) 500 mg PO ACHS [facility] Last Admin: 04/09/20 20:23 Dose: 500 mg Documented by: Diazepam (Valium) 5 mg PO Q8H [facility] Last Admin: 04/09/20 13:31 Dose: 5 mg Documented by: Enoxaparin Sodium (Lovenox) 40 mg SQ DAILY [facility] Last Admin: 04/09/20 07:37 Dose: 40 mg Documented by: Dextrose/Sodium Chloride (Dextrose 5%-1/2ns Iv Soln) 1,000 mls @ 150 mls/hr IV .Q6H40M [facility] Last Admin: 04/09/20 19:43 Dose: 150 mls/hr Documented by: Lorazepam (Ativan) 1 mg IV Q2HR PRN PRN Reason: CIWA 8 or 9 Last Admin: 04/09/20 17:49 Dose: 1 mg Documented by: Lorazepam (Ativan) 1 mg IV Q1HR PRN PRN Reason: CIWA 10 to 15 Last Admin: 04/08/20 12:47 Dose: 1 mg Documented by: Lorazepam (Ativan) 2 mg IV Q10M PRN PRN Reason: CIWA 16 or higher Stop: 04/10/20 10:21 Magnesium Oxide (Mag-Ox) 400 mg PO TID [facility] Last Admin: 04/09/20 14:32 Dose: 400 mg Documented by: Metoprolol Tartrate (Lopressor) 12.5 mg PO TID [facility] Last Admin: 04/09/20 14:32 Dose: 12.5 mg Documented by: Morphine Sulfate (Morphine Sulfate (Inj)) 4 mg IV Q6HR PRN PRN Reason: Severe Pain Last Admin: 04/09/20 20:24 Dose: 4 mg Documented by: Naloxone HCl (Narcan) 0.2 mg IV Q2M PRN PRN Reason: Opioid Reversal Nicotine (Habitrol 21mg/24hr Patch) 1 patch TRANSDERM DAILY [facility] Last Admin: 04/09/20 07:37 Dose: 1 patch Documented by: Pantoprazole Sodium (Protonix) 40 mg PO AC-BID [facility] Last Admin: 04/09/20 16:48 Dose: 40 mg Documented by: Thiamine HCl (Vitamin B-1) 100 mg PO BID-W/MEALS [facility] Last Admin: 04/09/20 16:48 Dose: 100 mg Documented by: Physical examination: VITAL SIGNS: 98.6, 60, 18, 146/86, 99% room air GENERAL: Sitting up in bed, a bit more calm today EYES: Pupils equal. Conjunctiva normal. HEENT: External appearance of nose and ears normal, oral cavity grossly normal. NECK: JVD not raised; masses not palpable. HEART: First and second heart sounds are normal; no edema. LUNGS: Respiratory rate normal; clear to auscultation. ABDOMEN: Soft, mild epigastric tenderness, no guarding rigidity, liver spleen not palpable, no masses palpable. PSYCH: [Alert and oriented x3; mood and affect a bit less anxious. INVESTIGATIONS, reviewed in the clinical context: Potassium 3.3 creatinine 0.65 phosphorus 2.1, lipase 1006 Previous testing White count 7.9 hemoglobin 15.2 platelets 112 potassium 3.518 creatinine 0.71 phosphorus 1.7 magnesium 1.5 AST 60 ALT 47 Lipase 1131 serum alcohol 67 Assessment: -Acute alcoholic pancreatitis, slowly improving -Alcohol use disorder with alcohol dependence -Early alcohol withdrawal syndrome, improving -Hypomagnesemia, hypophosphatemia, improving -Alcoholic hepatitis -Thrombocytopenia due to alcoholism -Chewing tobacco dependence Plan: Care was discussed with the patient. Started on clear liquids. Was a Valium cut back. Check labs in the morning.
--- NOTE | 2020-04-10 00:20 | CONS ---
CONSULTATION DATE OF DICTATION: 04/09/2020 REASON FOR CONSULTATION: Acute pancreatitis. HISTORY OF PRESENT ILLNESS: The patient is a 40-year-old pleasant white male with history of alcohol abuse, admitted to the hospital with abdominal pain mostly in the epigastric area associated with nausea and vomiting for the last 3 days duration. He stopped drinking a few months ago, but for the last few months he relapsed and has been drinking heavily. He initially had epigastric pain, nausea, vomiting which continued to progressively get worse and hence came into the emergency room, noted to have elevated lipase at . He is feeling somewhat better today. He was started on a clear liquid diet and the epigastric pain has significantly worsened. No further episodes of nausea, vomiting. No fever, chills, night sweats. No prior history of pancreatitis. PAST MEDICAL HISTORY: Alcohol abuse. MEDICATIONS AT HOME: None. ALLERGIES: Allergies to LATEX. SOCIAL HISTORY: Chronic smoker. Alcohol use as mentioned above. FAMILY HISTORY: Unremarkable. REVIEW OF SYSTEMS: CARDIOPULMONARY: No chest pain, no shortness of breath. GENITOURINARY: No dysuria or hematuria. MUSCULOSKELETAL: Chronic back pain. NEUROLOGY: Unremarkable. PSYCHIATRIC: Unremarkable. ENT/VISION: Unremarkable. CONSTITUTIONAL: No recent weight loss. No fever, chills, night sweats. ENDOCRINE: Unremarkable. HEMATOLOGY: Unremarkable. PHYSICAL EXAMINATION: Blood pressure is 146/86, pulse rate 60, temperature 98.6. HEENT EXAMINATION: Unremarkable. Conjunctivae pink. Sclerae anicteric. Oral cavity no lesions. NECK: No JVD or lymph node enlargement. CHEST: Clear to auscultation. HEART: Regular rate and rhythm. ABDOMEN: Soft. Mild tenderness in the epigastric area. Bowel sounds are positive. No organomegaly. EXTREMITIES: No pedal edema. NEUROLOGIC: Alert and oriented x3. No focal deficits. LABS: WBC 7.9, hemoglobin 15.2, platelets 112. Rest of the labs are within normal limits. T bilirubin 1.4. AST and ALT of 60 and 47 respectively. Lipase is 1131, today lipase is 1006. Serum alcohol level was 67. IMPRESSION: 1. This is a patient who presents to the hospital with epigastric pain associated with nausea, vomiting for the last 2 weeks duration. He was noted to have elevated lipase consistent with acute pancreatitis. Possibility of acute alcoholic gastritis also needs to be considered. Presently on a clear liquid diet. Still continues to have persistent epigastric pain, getting pain medications quite often. 2. History of heavy alcohol abuse. 3. Mild elevation of serum transaminases and T bilirubin consistent with alcoholic liver disease. RECOMMENDATIONS: 1. Obtain ultrasound of the abdomen. 2. Repeat labs in the morning. 3. Continue with symptomatic and supportive care. 4. Protonix daily. 5. Clear liquid diet for now. 6. Abstinence from alcohol. 7. Will follow with you closely. Thank you for this consultation. MMODL / IJN: [id number] /
[2020-04-10] MEDS: DEXTROSE 5%-0.45% NACL 1,000 ML IV SCH ×4 (01:31→21:16)
[2020-04-10] MEDS: MORPHINE SULFATE 4 MG/ML SYRINGE IV PRN ×2 (02:15→08:18)
[2020-04-10] MEDS: LORazepam 2 MG/ML INJ IV PRN ×4 (04:02→19:24)
[2020-04-10] MEDS: diazePAM 5 MG TAB PO SCH ×3 (05:47→21:16)
[2020-04-10] MEDS: THIAMINE 100 MG TAB PO SCH ×2 (08:14→18:21)
[2020-04-10] MEDS: PANTOPRAZOLE 40 MG TABLET PO SCH ×2 (08:14→18:21)
[2020-04-10] MEDS: CALCIUM CARBONATE LIQUID 500 MG/5 ML CUP PO SCH ×4 (08:15→21:16)
--- NOTE | 2020-04-10 08:48 | US ---
EXAMINATION TYPE: US abdomen complete DATE OF EXAM: 04/10/2020 COMPARISON: NONE CLINICAL HISTORY: ac pancreatitis. Pain EXAM MEASUREMENTS: Liver Length: 15.1 cm Gallbladder Wall: .2 cm CBD: .7 cm Spleen: 9.9 cm Right Kidney: 8.8 x 4.2 x 4.6 cm Left Kidney: 10.4 x 5.7 x 4.2 cm Pancreas: Tail obscured by overlying bowel gas duct visualized Liver: Increased attenuation Gallbladder: wnl Evidence for sonographic Antoine's sign: No CBD: dilated Spleen: wnl Right Kidney: wnl Left Kidney: wnl Upper IVC: wnl Abd Aorta: wnl The intrahepatic portion of the IVC and proximal abdominal aorta are within normal limits. There is no evidence of cholelithiasis. The visualized portions of the pancreas are homogenous. The spleen i s unremarkable. Kidneys are symmetric and free of hydronephrosis. No renal lesions are seen. IMPRESSION: 1. Hepatic steatosis. 2. Nonspecific dilatation of the common bile duct.
[2020-04-10 09:08] LABS: ALT 41 U/L (4-49); AST 51 U/L (17-59); African American GFR (CKD) >90 (>60 ml/min/1.73 sqM); Albumin 3.6 g/dL (3.5-5.0); Alkaline Phosphatase 88 U/L (38-126); Anion Gap 6 mmol/L; Blood Urea Nitrogen <2 mg/dL (9-20); Carbon Dioxide 26 mmol/L (22-30); Chloride 105 mmol/L (98-107); Glucose 96 mg/dL (74-99); Non-African American GFR(CKD) >90 (>60 ml/min/1.73 sqM); Potassium 3.1 mmol/L (3.5-5.1); Sodium 137 mmol/L (137-145); Total Bilirubin 1.1 mg/dL (0.2-1.3); Total Protein 6.5 g/dL (6.3-8.2)
[2020-04-10] MEDS: ENOXAPARIN 40 MG/0.4 ML SYRINGE SQ SCH (09:33)
[2020-04-10] MEDS: METOPROLOL TARTRATE 12.5 MG TAB PO SCH ×3 (09:33→21:16)
[2020-04-10] MEDS: MAGNESIUM OXIDE 400 MG TAB PO SCH ×3 (09:34→21:16)
[2020-04-10] MEDS: NICOTINE 21MG/24HR PATCH TRANSDERM SCH (09:34)
[2020-04-10] MEDS: MORPHINE SULFATE 2 MG/ML SYRINGE IVP PRN ×2 (14:33→22:23)
--- NOTE | 2020-04-10 21:43 | PN ---
PROGRESS NOTE DATE OF SERVICE: 04/10/2020 Patient is a 40-year-old pleasant white male admitted to the hospital with acute pancreatitis. He is feeling much better. Abdominal pain is improving. He is on a full liquid diet, tolerating well. Requesting for advancing diet. He denies any fever, chills, night sweats. PHYSICAL EXAMINATION: Appears comfortable, in no apparent distress. VITAL SIGNS: Stable. Blood pressure is 115/75, pulse is 75, temperature 97.9. HEENT: Examination unremarkable. Conjunctivae are pink. Sclerae anicteric. Oral cavity no lesions. Neck no JVD or lymph node enlargement. CHEST: Clear to auscultation. HEART: Regular rate and rhythm. ABDOMEN: Soft, mild tenderness in the epigastric area. Bowel sounds are positive. No organomegaly. EXTREMITIES: No pedal edema. NEUROLOGIC: Alert and oriented x3. No focal deficits. LAB: BMP is within normal limits. Lipase is slightly increased to 1230. Ultrasound of the abdomen showed slightly dilated CBD. There was evidence of fatty liver, hepatic steatosis and gallbladder was within normal limits with no gallstones. IMPRESSION: 1. Acute pancreatitis secondary to alcohol abuse. Lipase is slightly elevated, but clinically patient is improving. Abdominal ultrasound did not show any evidence of gallstones. 2. History of heavy alcohol abuse. RECOMMENDATION: 1. Advance to low-fat diet. 2. Pain medications as needed. 3. Abstinence from alcohol. 4. If his labs are improving tomorrow, he can be discharged home with outpatient followup in 2-3 weeks. Thank you for this consultation. MMODL / IJN: [id number] /
--- NOTE | 2020-04-10 23:04 | P.PN ---
Progress Note - Text Progress Note Date: 04/10/20 Chief Complaint: Nausea vomiting abdominal pain History of presenting complaint: This is a 40-year-old patient of Dr. lunsford from [place]. Patient has been on Suboxone last 6 years for opioid abuse prior to that. Patient has been sober from alcohol for 7 years. 3 months ago patient relapsed and started drinking. Appointment today. It was working at [employer] and I wasn't compared back to 16 hours a week. Patient now presents with 1 week of nausea vomiting for a week. Upper abdominal pain. All sets of intermittent diarrhea. Also had some fever and chills. I gone down. He is rather shaky and an anxious. He has been prescribed 8 mg Suboxone tablets that she cut into smaller pieces to get his correct dose. Admitted with acute alcoholic pancreatitis, alcohol use disorder early alcohol withdrawal syndrome. Patient is made nothing by mouth. Started in IV fluids. On Valium and CIWA scale. Today-decreased abdominal pain. Patient requesting to be kept on the morphine. Looking better. Diet has been advanced by GI.. Patient been up to the [facility]. Review of systems: Was done for constitutional, cardiovascular, GI, pulmonary. relevant finding as above Physical examination: VITAL SIGNS: 97.9, 75, 16, 115/75, 99% room air GENERAL: Sitting up in bed, more relaxed EYES: Pupils equal. Conjunctiva normal. HEENT: External appearance of nose and ears normal, oral cavity grossly normal. NECK: JVD not raised; masses not palpable. HEART: First and second heart sounds are normal; no edema. LUNGS: Respiratory rate normal; clear to auscultation. ABDOMEN: Soft, decreased epigastric tenderness, no guarding rigidity, liver spleen not palpable, no masses palpable. PSYCH: [Alert and oriented x3; mood and affect more relaxed INVESTIGATIONS, reviewed in the clinical context: Potassium 3.1 lipase 1230 Previous testing White count 7.9 hemoglobin 15.2 platelets 112 potassium 3.518 creatinine 0.71 phosphorus 1.7 magnesium 1.5 AST 60 ALT 47 Lipase 1131 serum alcohol 67 Assessment: -Acute alcoholic pancreatitis, clinically improving -Alcohol use disorder with alcohol dependence -Early alcohol withdrawal syndrome, improving -Hypomagnesemia, hypophosphatemia, improving -Alcoholic hepatitis -Thrombocytopenia due to alcoholism -Chewing tobacco dependence -Hypokalemia Plan: -Dose of morphine cutback. Diet has been advanced. Increase tablet. Potassium replaced.
[2020-04-10] MEDS ORDERED: ACETAMINOPHEN TAB 325 MG TAB PO PRN (23:06)
[2020-04-11] MEDS: LORazepam 2 MG/ML INJ IV PRN ×2 (01:20→08:53)
[2020-04-11] MEDS: MORPHINE SULFATE 2 MG/ML SYRINGE IVP PRN (04:42)
[2020-04-11] MEDS: diazePAM 5 MG TAB PO SCH (06:03)
[2020-04-11] MEDS: ENOXAPARIN 40 MG/0.4 ML SYRINGE SQ SCH (08:43)
[2020-04-11] MEDS: MAGNESIUM OXIDE 400 MG TAB PO SCH (08:43)
[2020-04-11] MEDS: NICOTINE 21MG/24HR PATCH TRANSDERM SCH (08:43)
[2020-04-11] MEDS: METOPROLOL TARTRATE 12.5 MG TAB PO SCH (08:43)
[2020-04-11] MEDS: PANTOPRAZOLE 40 MG TABLET PO SCH (09:55)
[2020-04-11] MEDS: THIAMINE 100 MG TAB PO SCH (09:55)
[2020-04-11] MEDS: CALCIUM CARBONATE LIQUID 500 MG/5 ML CUP PO SCH ×2 (09:55→15:29)
[2020-04-11 13:55] VITALS: BP 145/90; PULSE 56; RESP 17; TEMP 98.1
--- NOTE | 2020-04-11 22:12 | PN ---
PROGRESS NOTE DATE OF DICTATION: 04/11/2020 The patient is a 40-year-old white male admitted to the hospital with acute pancreatitis secondary to alcohol abuse. He is doing much better. His abdominal pain has resolved. Nausea and vomiting resolved. On a low-fat diet, tolerating well. PHYSICAL EXAMINATION: Appears comfortable. No apparent distress. Vital signs are stable. Blood pressure 154/88, pulse rate 66, temperature 98. HEENT examination unremarkable. Conjunctivae pink. Sclerae anicteric. Oral cavity no lesions. NECK: No JVD or lymph node enlargement. CHEST: Clear to auscultation. HEART: Regular rate and rhythm. ABDOMEN: Soft. Mild tenderness in the epigastric area. Rest of the abdomen was benign. EXTREMITIES: No pedal edema. SKIN: No rashes. NEUROLOGIC: Alert and oriented x3. No focal deficits. LABS: Labs from today show that lipase is down to 849. IMPRESSION: 1. Acute pancreatitis secondary to alcohol abuse. Lipase is improving. Abdominal pain has completely resolved. Tolerating low-fat diet well. 2. History of heavy alcohol abuse. RECOMMENDATIONS: 1. Continue with low-fat diet. 2. Pain medications as needed. 3. He can be discharged home today. 4. Abstinence from alcohol. 5. Advised to follow up in the office in 2 weeks. Thank you for this consultation. MMODL / IJN: [id number] /
--- NOTE | 2020-04-11 23:52 | P.DS ---
Providers Date of admission: 04/08/20 10:23 Expected date of discharge: 04/11/20 Attending physician: Bay Barba Consults: 04/08/20 10:29 Consult Physician Stat Consulting Provider: Alejandra Senior Consult Reason/Comments: pancreatitis Do you want consulting provider notified?: Yes Primary care physician: Dayton Welch [facility] Course: Chief Complaint: Nausea vomiting abdominal pain History of presenting complaint: This is a 40-year-old patient of Dr. welch from [place]. Patient has been on Suboxone last 6 years for opioid abuse prior to that. Patient has been sober from alcohol for 7 years. 3 months ago patient relapsed and started drinking. It was working at [employer] and I wasn't compared back to 16 hours a week. Patient now presents with 1 week of nausea vomiting for a week. Upper abdominal pain. intermittent diarrhea. Also had some fever and chills. Appetite gone down. He is rather shaky and an anxious. He has been prescribed 8 mg Suboxone tablets that he cut into smaller pieces to get his correct dose. Admitted with acute alcoholic pancreatitis, alcohol use disorder early alcohol withdrawal syndrome. Patient is made nothing by mouth. Started in IV fluids. On Valium and CIWA scale. IV morphine for pain. Today-tolerating diet. Up and about. Pain much improved. Discharge planning discussed length with the patient. We will be going to rehab place for holistic approach tomorrow. His girlfriend be staying with him tonight. Consultation: Dr. Brittany Senior from GI Physical examination: VITAL SIGNS: 98.1, 56, 17, 1 4490, 98% room air GENERAL: Sitting up in bed, awake EYES: Pupils equal. Conjunctiva normal. HEENT: External appearance of nose and ears normal, oral cavity grossly normal. NECK: JVD not raised; masses not palpable. HEART: First and second heart sounds are normal; no edema. LUNGS: Respiratory rate normal; clear to auscultation. ABDOMEN: Soft, no tenderness, no guarding rigidity, liver spleen not palpable, no masses palpable. PSYCH: [Alert and oriented x3; mood and affect more relaxed INVESTIGATIONS, reviewed in the clinical context: Lipase 849 Previous testing White count 7.9 hemoglobin 15.2 platelets 112 potassium 3.518 creatinine 0.71 phosphorus 1.7 magnesium 1.5 AST 60 ALT 47 Lipase 1131 serum alcohol 67 Assessment: -Acute alcoholic pancreatitis, clinically improving -Alcohol use disorder with alcohol dependence -Early alcohol withdrawal syndrome, improving -Hypomagnesemia, hypophosphatemia, improving -Alcoholic hepatitis -Thrombocytopenia due to alcoholism -Chewing tobacco dependence -Hypokalemia Disposition: Home Patient Condition at Discharge: Stable Plan - Discharge Summary New Discharge Prescriptions: New Nicotine 21Mg/24Hr Patch [Habitrol] 1 patch TRANSDERM DAILY #14 patch Pantoprazole [Protonix] 40 mg PO AC-BID #60 tablet. Thiamine [Vitamin B-1] 100 mg PO DAILY #30 tab Metoprolol Tartrate [Lopressor] 12.5 mg PO BID #6 dose Discharge Medication List Metoprolol Tartrate [Lopressor] 12.5 mg PO BID #6 dose 04/11/20 [Rx] Nicotine 21Mg/24Hr Patch [Habitrol] 1 patch TRANSDERM DAILY #14 patch 04/11/20 [Rx] Pantoprazole [Protonix] 40 mg PO AC-BID #60 tablet. 04/11/20 [Rx] Thiamine [Vitamin B-1] 100 mg PO DAILY #30 tab 04/11/20 [Rx] Follow up Appointment(s)/Referral(s): Dayton Welch MD [Primary Care Provider] - 04/13/20 10:30 am Patient Instructions/Handouts: Pancreatitis (DC), Alcohol Withdrawal (DC) Activity/Diet/Wound Care/Special Instructions: osoft bland diet Discharge Disposition: HOME SELF-CARE
== END 2020-04-11 16:00 | disposition home or self-care (01) | DRG 439 ==
LOC: EC 09:21 → 5NMEDONC 10:23
PROVIDERS: ADMIT Hospitalist; ATTEND Hospitalist
DX: K85.20 Alcohol induced acute pancreatitis without necrosis or infection (principal); F10.239 Alcohol dependence with withdrawal, unspecified; E87.6 Hypokalemia; D69.59 Other secondary thrombocytopenia; E83.39 Other disorders of phosphorus metabolism; E83.42 Hypomagnesemia; F17.220 Nicotine dependence, chewing tobacco, uncomplicated; J45.909 Unspecified asthma, uncomplicated; K70.10 Alcoholic hepatitis without ascites; Z56.0 Unemployment, unspecified; Z82.49 Family history of ischemic heart disease and other diseases of the circulatory system; Z81.1 Family history of alcohol abuse and dependence; Z11.59 Encounter for screening for other viral diseases; F11.10 Opioid abuse, uncomplicated; K29.20 Alcoholic gastritis without bleeding; Z91.040 Latex allergy status; Z60.2 Problems related to living alone; K21.9 Gastro-esophageal reflux disease without esophagitis
CPT/HCPCS: 36415; 76700; 80048; 80053; 80320; 81003; 83690; 83735; 84100; 85025; 96361; 96372; 96374; 99285

== ENCOUNTER 2020-04-21 08:29 | Emergency (ER) | payer OTHER ==
[2020-04-21 08:33] VITALS: RESP 18; TEMP 99.1
[2020-04-21] MEDS ORDERED: SODIUM CHLORIDE 0.9% 1,000 ML IV STA ×2 (08:56)
[2020-04-21] MEDS ORDERED: ONDANSETRON 4 MG/2 ML VIAL IVP STA (08:56)
[2020-04-21] MEDS ORDERED: LORazepam 2 MG/ML INJ IV STA (09:18)
--- NOTE | 2020-04-21 09:20 | ED ---
Abdominal Pain HPI - General Chief Complaint: Abdominal Pain Stated Complaint: abd pain Time Seen by Provider: 04/21/20 08:39 Source: patient, RN notes reviewed, old records reviewed Mode of arrival: wheelchair Limitations: no limitations - History of Present Illness Initial Comments: Patient is a 40-year-old male presents return today for evaluation for concern for alcohol withdrawal symptoms. He reports he has not drank in the past 24 hours. He states he is recently admitted for pancreatitis. Is complaining of significant abdominal pain as well as nausea vomiting. Patient reports that he thinks that this is similar to his last pink or tightness episode. Patient denies any fevers or chills. He reports that after his last discharge was sup posed to go to rehab but did not. - Related Data Previous Rx's Medication Instructions Recorded Metoprolol Tartrate [Lopressor] 12.5 mg PO BID #6 dose 04/11/20 Nicotine 21Mg/24Hr Patch [Habitrol] 1 patch TRANSDERM DAILY #14 patch 04/11/20 Pantoprazole [Protonix] 40 mg PO AC-BID #60 tablet. 04/11/20 Thiamine [Vitamin B-1] 100 mg PO DAILY #30 tab 04/11/20 Ondansetron Odt [Zofran Odt] 4 mg PO Q8HR PRN #12 tab 04/21/20 Pantoprazole Sodium [Protonix] 40 mg PO DAILY #20 tablet. 04/21/20 chlordiazePOXIDE HCl [Librium] 25 mg PO QID 3 Days #12 capsule 04/21/20 Allergies Allergy/AdvReac Type Severity Reaction Status Date / Time latex Allergy Rash/Hives Verified 04/21/20 08:33 Review of Systems ROS Statement: Those systems with pertinent positive or pertinent negative responses have been documented in the HPI. ROS Other: All systems not noted in ROS Statement are negative. Past Medical History Past Medical History: GERD/Reflux Additional Past Medical History / Comment(s): alcoholism History of Any Multi-Drug Resistant Organisms: None Reported Past Surgical History: Hernia Repair Past Anesthesia/Blood Transfusion Reactions: No Reported Reaction Past Psychological History: No Psychological Hx Reported Smoking Status: Current every day smoker Past Alcohol Use History: Abuse, Daily, Heavy Past Drug Use History: None Reported, Opiates - Past Family History Mother Family Medical History: Myocardial Infarction ([place]) Father Additional Family Medical History / Comment(s): ALCOHOLISM General Exam - General Exam Comments Initial Comments: 40-year-old male. Alert and oriented. No distress. Limitations: no limitations General appearance: alert, in no apparent distress Head exam: Present: atraumatic, normocephalic, normal inspection Eye exam: Present: normal appearance, PERRL, EOMI. Absent: scleral icterus, conjunctival injection, periorbital swelling ENT exam: Present: normal exam, mucous membranes moist Neck exam: Present: normal inspection. Absent: tenderness, meningismus, lymphadenopathy Respiratory exam: Present: normal lung sounds bilaterally. Absent: respiratory distress, wheezes, rales, rhonchi, stridor Cardiovascular Exam: Present: regular rate, normal rhythm, normal heart sounds. Absent: systolic murmur, diastolic murmur, rubs, gallop, clicks GI/Abdominal exam: Present: soft, normal bowel sounds. Absent: distended, tenderness, guarding, rebound, rigid Neurological exam: Present: alert, oriented X3, CN II-XII intact Psychiatric exam: Present: normal affect, normal mood Course Vital Signs 04/21/20 04/21/20 04/21/20 08:31 11:42 12:00 Temperature 99.1 F Pulse Rate 128 H Respiratory 18 Rate Blood Pressure 140/92 145/103 O2 Sat by Pulse 99 100 97 Oximetry 04/21/20 12:30 Temperature Pulse Rate 80 Respiratory 18 Rate Blood Pressure 137/102 O2 Sat by Pulse 98 Oximetry Medical Decision Making - Medical Decision Making 40-year-old male history of alcohol abuse presents returns today for abdominal pain and nausea concern for alcohol withdrawal. Given Ativan labs are obtained. Serum alcohol 0. Patient's lipase is mildly elevated at 700. His bilirubin increased at 2.6. Discussed he does not meet criteria for admitting for acute pancreatitis. Patient did have ultrasound of the gallbladder shows no evidence of acute cholecystitis. Patient advised needs follow-up with outpatient rehab services. Discussed return parameters. - Lab Data Result diagrams: 04/21/20 09:18 04/21/20 09:18 Lab Results 04/21/20 04/21/20 04/21/20 Range/Units 09:18 09:18 09:18 WBC 9.5 (3.8-10.6) k/uL RBC 4.88 (4.30-5.90) m/uL Hgb 16.3 (13.0-17.5) gm/dL Hct 47.1 (39.0-53.0) % MCV 96.5 (80.0-100.0) fL MCH 33.5 (25.0-35.0) pg MCHC 34.7 (31.0-37.0) g/dL RDW 14.6 (11.5-15.5) % Plt Count 186 D (150-450) k/uL Neutrophils % 87 % Lymphocytes % 5 % Monocytes % 6 % Eosinophils % 0 % Basophils % 0 % Neutrophils # 8.3 H (1.3-7.7) k/uL Lymphocytes # 0.4 L (1.0-4.8) k/uL Monocytes # 0.6 (0-1.0) k/uL Eosinophils # 0.0 (0-0.7) k/uL Basophils # 0.0 (0-0.2) k/uL PT 10.1 (9.0-12.0) sec INR 1.0 (<1.2) APTT 20.6 L (22.0-30.0) sec Sodium 138 (137-145) mmol/L Potassium 3.3 L (3.5-5.1) mmol/L Chloride 102 (98-107) mmol/L Carbon Dioxide 22 (22-30) mmol/L Anion Gap 14 mmol/L BUN 10 (9-20) mg/dL Creatinine 0.69 (0.66-1.25) mg/dL Est GFR (CKD-EPI)AfAm >90 (>60 ml/min/1.73 sqM) Est GFR (CKD-EPI)NonAf >90 (>60 ml/min/1.73 sqM) Glucose 109 H (74-99) mg/dL Plasma Lactic Acid Fausto (0.7-2.0) mmol/L Calcium 10.1 (8.4-10.2) mg/dL Total Bilirubin 2.6 H (0.2-1.3) mg/dL AST 62 H (17-59) U/L ALT 61 H (4-49) U/L Alkaline Phosphatase 99 (38-126) U/L Total Protein 8.0 (6.3-8.2) g/dL Albumin 4.6 (3.5-5.0) g/dL Amylase 113 H (30-110) U/L Lipase 725 H (23-300) U/L Urine Color Urine Appearance (Clear) Urine pH (5.0-8.0) Ur Specific [place] (1.001-1.035) Urine Protein (Negative) Urine Glucose (UA) (Negative) Urine Ketones (Negative) Urine Blood (Negative) Urine Nitrite (Negative) Urine Bilirubin (Negative) Urine Urobilinogen (<2.0) mg/dL Ur Leukocyte Esterase (Negative) Urine RBC (0-5) /hpf Urine WBC (0-5) /hpf Ur Squamous Epith Cells (0-4) /hpf Urine Mucus (None) /hpf Serum Alcohol mg/dL 04/21/20 04/21/20 04/21/20 Range/Units 09:18 09:18 09:27 WBC (3.8-10.6) k/uL RBC (4.30-5.90) m/uL Hgb (13.0-17.5) gm/dL Hct (39.0-53.0) % MCV (80.0-100.0) fL MCH (25.0-35.0) pg MCHC (31.0-37.0) g/dL RDW (11.5-15.5) % Plt Count (150-450) k/uL Neutrophils % % Lymphocytes % % Monocytes % % Eosinophils % % Basophils % % Neutrophils # (1.3-7.7) k/uL Lymphocytes # (1.0-4.8) k/uL Monocytes # (0-1.0) k/uL Eosinophils # (0-0.7) k/uL Basophils # (0-0.2) k/uL PT (9.0-12.0) sec INR (<1.2) APTT (22.0-30.0) sec Sodium (137-145) mmol/L Potassium (3.5-5.1) mmol/L Chloride (98-107) mmol/L Carbon Dioxide (22-30) mmol/L Anion Gap mmol/L BUN (9-20) mg/dL Creatinine (0.66-1.25) mg/dL Est GFR (CKD-EPI)AfAm (>60 ml/min/1.73 sqM) Est GFR (CKD-EPI)NonAf (>60 ml/min/1.73 sqM) Glucose (74-99) mg/dL Plasma Lactic Acid Fausto 1.5 (0.7-2.0) mmol/L Calcium (8.4-10.2) mg/dL Total Bilirubin (0.2-1.3) mg/dL AST (17-59) U/L ALT (4-49) U/L Alkaline Phosphatase (38-126) U/L Total Protein (6.3-8.2) g/dL Albumin (3.5-5.0) g/dL Amylase (30-110) U/L Lipase (23-300) U/L Urine Color [place] Urine Appearance Clear (Clear) Urine pH 6.0 (5.0-8.0) Ur Specific [place] 1.015 (1.001-1.035) Urine Protein 2+ H (Negative) Urine Glucose (UA) 1+ H (Negative) Urine Ketones 2+ H (Negative) Urine Blood Negative (Negative) Urine Nitrite Negative (Negative) Urine Bilirubin 2+ H (Negative) Urine Urobilinogen 8.0 (<2.0) mg/dL Ur Leukocyte Esterase Negative (Negative) Urine RBC 1 (0-5) /hpf Urine WBC 2 (0-5) /hpf Ur Squamous Epith Cells <1 (0-4) /hpf Urine Mucus Moderate H (None) /hpf Serum Alcohol <10 mg/dL - Radiology Data Radiology results: report reviewed Neurologist neighbor called appearance of the liver on fatty infiltration or hepatocellular disease. No ascites. No change from prior study. No gallstones or EVIDENCE FOR ACUTE CHOLECYSTITIS. Disposition Clinical Impression: Alcohol abuse, Elevated lipase, Alcohol withdrawal Disposition: HOME SELF-CARE Condition: Good Instructions (If sedation given, give patient instructions): Alcohol Withdrawal (ED) Additional Instructions: Patient has a follow-up with outpatient rehab services. Take medications as prescribed. Return to emergency department if any alarming signs or symptoms occur. Prescriptions: chlordiazePOXIDE HCl [Librium] 25 mg PO QID 3 Days #12 capsule Pantoprazole Sodium [Protonix] 40 mg PO DAILY #20 tablet. Ondansetron Odt [Zofran Odt] 4 mg PO Q8HR PRN #12 tab PRN Reason: Nausea Is patient prescribed a controlled substance at d/c from ED?: No Referrals: Dayton Welch MD [Primary Care Provider] - 1-2 days Time of Disposition: 12:26
[2020-04-21 09:26] LABS: ALT 61 U/L (4-49); AST 62 U/L (17-59); African American GFR (CKD) >90 (>60 ml/min/1.73 sqM); Albumin 4.6 g/dL (3.5-5.0); Alkaline Phosphatase 99 U/L (38-126); Amylase 113 U/L (30-110); Anion Gap 14 mmol/L; Blood Urea Nitrogen 10 mg/dL (9-20); Calcium 10.1 mg/dL (8.4-10.2); Carbon Dioxide 22 mmol/L (22-30); Chloride 102 mmol/L (98-107); Glucose 109 mg/dL (74-99); Lipase 725 U/L (23-300); Non-African American GFR(CKD) >90 (>60 ml/min/1.73 sqM); Potassium 3.3 mmol/L (3.5-5.1); Sodium 138 mmol/L (137-145); Total Bilirubin 2.6 mg/dL (0.2-1.3)
[2020-04-21 09:37] LABS: Basophils % (A) 0 %; Eosinophils % (A) 0 %; HCT 47.1 % (39.0-53.0); HGB 16.3 gm/dL (13.0-17.5); Lymphocytes # (A) 0.4 k/uL (1.0-4.8); Lymphocytes % (A) 5 %; MCH 33.5 pg (25.0-35.0); MCHC 34.7 g/dL (31.0-37.0); MCV 96.5 fL (80.0-100.0); Monocytes # (A) 0.6 k/uL (0-1.0); Monocytes % (A) 6 %; Neutrophils # (A) 8.3 k/uL (1.3-7.7); Neutrophils % (A) 87 %; RBC 4.88 m/uL (4.30-5.90); RDW 14.6 % (11.5-15.5); WBC 9.5 k/uL (3.8-10.6)
[2020-04-21 09:41] LABS: Prothrombin Time 10.1 sec (9.0-12.0)
[2020-04-21 09:44] LABS: Partial Thromboplastin Time 20.6 sec (22.0-30.0)
[2020-04-21 09:48] LABS: Platelet Count 186 k/uL (150-450)
[2020-04-21 09:51] LABS: Mucus,Urine Moderate /hpf; RBC,Urine 1 /hpf (0-5); Squamous Epithelial Cell,Urine <1 /hpf (0-4); WBC,Urine 2 /hpf (0-5)
[2020-04-21 09:57] LABS: Appearance,Urine Clear (Clear); Color,Urine Amber
[2020-04-21 09:58] LABS: Bilirubin,Urine 2+ (Negative); Blood,Urine Negative (Negative); Glucose,Urine (UA) 1+ (Negative); Ketones,Urine 2+ (Negative); Leukocyte Esterase,Urine Negative (Negative); Nitrite,Urine Negative (Negative); Protein,Urine 2+ (Negative); Specific Gravity,Urine 1.015 (1.001-1.035)
--- NOTE | 2020-04-21 11:35 | US ---
EXAMINATION TYPE: US gallbladder DATE OF EXAM: 04/21/2020 COMPARISON: US abdomen 11 days ago. CLINICAL HISTORY: bilirubin. Increased alcohol intake per patient, epigastric and gastric pain EXAM MEASUREMENTS: Liver Length: 14.0 cm Gallbladder Wall: 0.35 cm CBD: 0.55 cm Right Kidney: 10.4 x 4.7 x 5.3 cm Pancreas: hyperechoic Liver: hyperechoic to right renal cortex, vessels poorly seen, and attenuated posteriorly suggests f atty liver Gallbladder: appears mildly contracted with thickened wall Evidence for sonographic Antoine's sign: no CBD: wnl Right Kidney: No hydronephrosis or masses seen Visualized pancreas is slightly heterogeneous without mass or ductal dilatation. Portions obscured by overlying bowel gas. Visualized liver remains heterogeneously hyperechoic. No surrounding ascites. E valuation for focal masses suboptimal due to the heterogeneity. Gallbladder is contracted in appearan ce without intraluminal shadowing gallstones. Gallbladder wall is mildly thickened up to 3.5 mm. Comm on bile duct measures upper limits of normal. No right-sided hydronephrosis. IMPRESSION: Heterogeneous hyperechoic appearance of the liver could be on basis of diffuse fatty infi ltration and/or underlying hepatocellular disease. No new ascites. No significant change from prior s tudy. No shadowing mobile gallstones or ultrasound evidence for acute cholecystitis.
[2020-04-21] MEDS ORDERED: ACET/COD 300 MG/30 MG STARTER PACK 6 TAB BTL PO STA (12:26)
[2020-04-21 12:59] VITALS: BP 137/102; PULSE 80
== END 2020-04-21 13:09 | disposition home or self-care (01) ==
LOC: EC 08:29
DX: F10.239 Alcohol dependence with withdrawal, unspecified (principal); R74.8 Abnormal levels of other serum enzymes; K85.90 Acute pancreatitis without necrosis or infection, unspecified; F17.200 Nicotine dependence, unspecified, uncomplicated; Z91.040 Latex allergy status
CPT/HCPCS: 36415; 80053; 82150; 83605; 83690; 85025; 85610; 85730; 81001; 80320; 76705; 99284; 96374; 96375; 96361 ×4; J2060; J2405

== ENCOUNTER 2021-02-21 18:52 | Emergency (ER) | payer BC, OTHER ==
[2021-02-21 19:04] VITALS: RESP 18; TEMP 98.2
[2021-02-21 21:01] LABS: Basophils % (A) 1 %; Eosinophils # (A) 0.2 k/uL (0-0.7); Eosinophils % (A) 3 %; HCT 41.9 % (39.0-53.0); HGB 14.5 gm/dL (13.0-17.5); Lymphocytes # (A) 1.5 k/uL (1.0-4.8); Lymphocytes % (A) 26 %; MCH 29.7 pg (25.0-35.0); MCHC 34.6 g/dL (31.0-37.0); Monocytes # (A) 0.5 k/uL (0-1.0); Monocytes % (A) 8 %; Neutrophils # (A) 3.5 k/uL (1.3-7.7); Neutrophils % (A) 60 %; Platelet Count 202 k/uL (150-450); RBC 4.87 m/uL (4.30-5.90); RDW 13.1 % (11.5-15.5); WBC 5.7 k/uL (3.8-10.6)
--- NOTE | 2021-02-21 21:09 | ED ---
Abdominal Pain HPI - General Chief Complaint: Abdominal Pain Stated Complaint: Constipation Time Seen by Provider: 02/21/21 19:33 Source: patient Mode of arrival: ambulatory Limitations: no limitations - History of Present Illness Initial Comments: Patient is a 40-year-old male presenting to the emergency Department with complaints of constipation for about one week. He states he has been dealing with constipation on and off for a few months now. He states he has not had a good bowel movement in over one week. He has tried stool softeners, laxatives and even tried an enema today without improvement. He states he can only hold on him off about 1-2 minutes. He is having a lot of abdominal pressure, denies sharp pains. He denies any nausea or vomiting. He denies a chest pain or shortness of breath. He states he was a big alcohol drinker, has been sober for 7-8 months. He does take narcotics for pain. He has a history of anxiety which she feels like is contributing. His further complaints at this time. His vital signs are stable upon arrival. - Related Data Previous Rx's Medication Instructions Recorded Metoprolol Tartrate [Lopressor] 12.5 mg PO BID #6 dose 04/11/20 Nicotine 21Mg/24Hr Patch [Habitrol] 1 patch TRANSDERM DAILY #14 patch 04/11/20 Pantoprazole [Protonix] 40 mg PO AC-BID #60 tablet. 04/11/20 Thiamine [Vitamin B-1] 100 mg PO DAILY #30 tab 04/11/20 Ondansetron Odt [Zofran Odt] 4 mg PO Q8HR PRN #12 tab 04/21/20 Pantoprazole Sodium [Protonix] 40 mg PO DAILY #20 tablet. 04/21/20 chlordiazePOXIDE HCl [Librium] 25 mg PO QID 3 Days #12 capsule 04/21/20 Allergies Allergy/AdvReac Type Severity Reaction Status Date / Time latex Allergy Rash/Hives Verified 02/21/21 19:03 Review of Systems ROS Statement: Those systems with pertinent positive or pertinent negative responses have been documented in the HPI. ROS Other: All systems not noted in ROS Statement are negative. Past Medical History Past Medical History: GERD/Reflux Additional Past Medical History / Comment(s): alcoholism History of Any Multi-Drug Resistant Organisms: None Reported Past Surgical History: Hernia Repair Past Anesthesia/Blood Transfusion Reactions: No Reported Reaction Past Psychological History: No Psychological Hx Reported Smoking Status: Current every day smoker Past Alcohol Use History: None Reported Past Drug Use History: None Reported, Opiates - Past Family History Mother Family Medical History: Myocardial Infarction ([place]) Father Additional Family Medical History / Comment(s): ALCOHOLISM General Exam - General Exam Comments Initial Comments: GENERAL: Patient is well-developed and well-nourished. Patient is nontoxic and in no acute distress. HEAD: Atraumatic, normocephalic. EYES: Pupils equal round and reactive to light, extraocular movements intact, sclera anicteric, conjunctiva are normal. Eyelids were unremarkable. ENT: TMs normal, nares patent, oropharynx clear without exudates. Moist mucous membranes. NECK: Normal range of motion, supple without lymphadenopathy or JVD. LUNGS: Unlabored respirations. Breath sounds clear to auscultation bilaterally and equal. No wheezes rales or rhonchi. HEART: Regular rate and rhythm without murmurs, rubs or gallops. ABDOMEN: Soft, nontender, normoactive bowel sounds. No guarding, no rebound. No masses appreciated. : Deferred MUSCULOSKELETAL: Normal extremities with adequate strength and normal range of motion, no pitting or edema. No clubbing or cyanosis. NEUROLOGICAL: Patient is alert and oriented x 3. Motor and sensory are also intact. Cranial nerves II through XII grossly intact. Symmetrical smile. Normal speech, normal gait. PSYCH: Normal mood, normal affect. SKIN: Warm, Dry, normal turgor, no rashes or lesions noted. Limitations: no limitations Course Vital Signs 02/21/21 02/21/21 19:01 21:45 Temperature 98.2 F 98.2 F Pulse Rate 66 62 Respiratory 18 18 Rate Blood Pressure 139/80 127/85 O2 Sat by Pulse 98 99 Oximetry Medical Decision Making - Medical Decision Making Patient is a 40-year-old male presenting with constipation 1 week. No abdominal pain on palpation. His vitals are stable. Labs are within normal short its. KUB shows a nonacute abdomen, bowel gas pattern is normal, fecal pattern is normal. Patient has been resting comfortably here in the ER. I discussed these findings with the patient. I recommended MiraLAX daily, increase water intake, and trial of coffee for the constipation. If symptoms persist he can try an enema at home in the next 3-4 days. Patient is in agreement this plan of care and he is stable for discharge. Case discussed with Dr. Madison. - Lab Data Result diagrams: 02/21/21 20:53 02/21/21 20:53 Lab Results 02/21/21 02/21/21 Range/Units 20:53 20:53 WBC 5.7 (3.8-10.6) k/uL RBC 4.87 (4.30-5.90) m/uL Hgb 14.5 (13.0-17.5) gm/dL Hct 41.9 (39.0-53.0) % MCV 86.0 (80.0-100.0) fL MCH 29.7 (25.0-35.0) pg MCHC 34.6 (31.0-37.0) g/dL RDW 13.1 (11.5-15.5) % Plt Count 202 (150-450) k/uL MPV 7.0 Neutrophils % 60 % Lymphocytes % 26 % Monocytes % 8 % Eosinophils % 3 % Basophils % 1 % Neutrophils # 3.5 (1.3-7.7) k/uL Lymphocytes # 1.5 (1.0-4.8) k/uL Monocytes # 0.5 (0-1.0) k/uL Eosinophils # 0.2 (0-0.7) k/uL Basophils # 0.0 (0-0.2) k/uL Sodium 139 (137-145) mmol/L Potassium 4.4 (3.5-5.1) mmol/L Chloride 103 (98-107) mmol/L Carbon Dioxide 28 (22-30) mmol/L Anion Gap 8 mmol/L BUN 12 (9-20) mg/dL Creatinine 1.10 (0.66-1.25) mg/dL Est GFR (CKD-EPI)AfAm >90 (>60 ml/min/1.73 sqM) Est GFR (CKD-EPI)NonAf 83 (>60 ml/min/1.73 sqM) Glucose 85 (74-99) mg/dL Calcium 9.9 (8.4-10.2) mg/dL Total Bilirubin 0.7 (0.2-1.3) mg/dL AST 20 (17-59) U/L ALT 14 (4-49) U/L Alkaline Phosphatase 78 (38-126) U/L Total Protein 7.4 (6.3-8.2) g/dL Albumin 4.3 (3.5-5.0) g/dL Disposition Clinical Impression: Constipation Disposition: HOME SELF-CARE Condition: Stable Instructions (If sedation given, give patient instructions): Constipation (ED) Additional Instructions: Please return to the Emergency Department if symptoms worsen or any other concerns. Recommended trial of MiraLAX for 3-4 weeks, increase your water intake, trial of coffee as discussed. Follow-up with your PCP. Is patient prescribed a controlled substance at d/c from ED?: No Referrals: Dayton Welch MD [Primary Care Provider] - 1-2 days Time of Disposition: 21:35
[2021-02-21 21:15] LABS: ALT 14 U/L (4-49); AST 20 U/L (17-59); African American GFR (CKD) >90 (>60 ml/min/1.73 sqM); Albumin 4.3 g/dL (3.5-5.0); Alkaline Phosphatase 78 U/L (38-126); Anion Gap 8 mmol/L; Blood Urea Nitrogen 12 mg/dL (9-20); Calcium 9.9 mg/dL (8.4-10.2); Carbon Dioxide 28 mmol/L (22-30); Chloride 103 mmol/L (98-107); Glucose 85 mg/dL (74-99); Non-African American GFR(CKD) 83 (>60 ml/min/1.73 sqM); Potassium 4.4 mmol/L (3.5-5.1); Sodium 139 mmol/L (137-145); Total Bilirubin 0.7 mg/dL (0.2-1.3); Total Protein 7.4 g/dL (6.3-8.2)
--- NOTE | 2021-02-21 21:16 | XR ---
EXAMINATION TYPE: XR KUB DATE OF EXAM: 02/21/2021 COMPARISON: NONE HISTORY: Constipation. Nausea. TECHNIQUE: 2 views FINDINGS: Bowel gas pattern is normal. There is no sign of intestinal obstruction or pneumoperitoneum . Fecal pattern is normal. There are no pathologic calcifications. Lung bases are clear. IMPRESSION: Nonacute abdomen.
[2021-02-21 22:21] VITALS: BP 127/85; PULSE 62
== END 2021-02-21 21:45 | disposition home or self-care (01) ==
LOC: EC 18:52
DX: K59.00 Constipation, unspecified (principal); K21.9 Gastro-esophageal reflux disease without esophagitis; F17.200 Nicotine dependence, unspecified, uncomplicated; Z91.040 Latex allergy status; Z79.899 Other long term (current) drug therapy
CPT/HCPCS: 36415; 74018; 80053; 85025; 99284

== ENCOUNTER 2022-04-12 17:15 | Emergency (ER) | payer BC, OTHER ==
[2022-04-12 17:48] VITALS: BP 120/79; PULSE 65; RESP 16; TEMP 98.7
[2022-04-12] MEDS ORDERED: TETRACAINE 0.5% OPHTH (PF) DROPS 4 ML BTL BOTH EYES STA (17:50)
--- NOTE | 2022-04-12 17:52 | ED ---
Eye Problem HPI - General Chief complaint: Eye Problems Stated complaint: Lt eye swollen Time Seen by Provider: 04/12/22 17:49 Source: patient Mode of arrival: ambulatory Limitations: no limitations - History of Present Illness Initial comments: This is a pleasant 42-year-old male who slept with his contacts in 2 nights ago. Yesterday he started to notice a scratching type pain along with redness and swelling. Patient went to urgent care and eye exam done. Patient was told he had a corneal abrasion was not given any medications. Patient here for evaluation. No difficulties with visual acuity. Patient complaining of 5 out of 10 pain which is constant to the left eye. Getting worse over the past few days. Patient states he slept in the contacts on night. Patient is wearing his eyeglasses but they are normal prescription. Describing mild blurriness. Patient states he is getting some purulent discharge from the eye. No headache, no fever or chills, no changes in vision or hearing, no sore throat or difficulty with speech, no neck pain, no chest pain or shortness of breath, no abdominal pain, no nausea or vomiting, no changes in urination or bowel movements, no numbness or tingling, no extremity pain, no skin rashes or lesions. Past medical, surgical, social, and family history reviewed. MD chief complaint: eye pain, eye redness - Related Data Previous Rx's Medication Instructions Recorded Metoprolol Tartrate [Lopressor] 12.5 mg PO BID #6 dose 04/11/20 Nicotine 21Mg/24Hr Patch [Habitrol] 1 patch TRANSDERM DAILY #14 patch 04/11/20 Pantoprazole [Protonix] 40 mg PO AC-BID #60 tablet. 04/11/20 Thiamine [Vitamin B-1] 100 mg PO DAILY #30 tab 04/11/20 Ondansetron Odt [Zofran Odt] 4 mg PO Q8HR PRN #12 tab 04/21/20 Pantoprazole Sodium [Protonix] 40 mg PO DAILY #20 tablet. 04/21/20 chlordiazePOXIDE HCl [Librium] 25 mg PO QID 3 Days #12 capsule 04/21/20 Naproxen [Naprosyn] 375 mg PO Q12HR PRN #20 tablet 04/12/22 Allergies Allergy/AdvReac Type Severity Reaction Status Date / Time latex Allergy Rash/Hives Verified 04/12/22 17:47 Review of Systems ROS Statement: Those systems with pertinent positive or pertinent negative responses have been documented in the HPI. ROS Other: All systems not noted in ROS Statement are negative. Past Medical History Past Medical History: GERD/Reflux Additional Past Medical History / Comment(s): alcoholism History of Any Multi-Drug Resistant Organisms: None Reported Past Surgical History: Hernia Repair Past Anesthesia/Blood Transfusion Reactions: No Reported Reaction Past Psychological History: No Psychological Hx Reported Smoking Status: Current every day smoker Past Alcohol Use History: None Reported Past Drug Use History: None Reported, Opiates - Past Family History Mother Family Medical History: Myocardial Infarction ([place]) Father Additional Family Medical History / Comment(s): ALCOHOLISM General Exam Limitations: no limitations General appearance: alert, in no apparent distress Head exam: Present: atraumatic, normocephalic, normal inspection Eye exam: Present: PERRL, EOMI, conjunctival injection (Left), other (Conjunctival injection involving the left eye. Minimal chemosis. No evidence of foreign body). Absent: normal appearance (Patient does have what appears to be an early corneal ulceration to the 12 o'clock position ), scleral icterus, periorbital swelling, periorbital tenderness Expanded Eyelids: Normal Inspection: Right Pupils: Regular, Round: Bilateral, Reactive: Bilateral Sclera/Conjunctival: Normal Inspection: Right, Injection: Left (Diffuse conjunctival injection left eye, evidence of minimal purulent discharge) Anterior chamber: Normal Inspection: Bilateral Posterior chamber: Deferred: Bilateral Visual acuity (R) = 20/: 30 Visual acuity (L) = 20/: 50 With correction: Yes ENT exam: Present: normal exam, normal oropharynx, mucous membranes moist, n ormal external ear exam. Absent: mucous membranes dry Neck exam: Present: normal inspection. Absent: tenderness, meningismus, lymphadenopathy Respiratory exam: Present: normal lung sounds bilaterally. Absent: respiratory distress, wheezes, rales, rhonchi, stridor Cardiovascular Exam: Present: regular rate, normal rhythm, normal heart sounds. Absent: systolic murmur, diastolic murmur, rubs, gallop, clicks GI/Abdominal exam: Present: soft, normal bowel sounds. Absent: distended, tenderness, guarding, rebound, rigid Extremities exam: Present: normal inspection, full ROM, normal capillary refill. Absent: tenderness, pedal edema, joint swelling, calf tenderness Back exam: Present: normal inspection Neurological exam: Present: alert, oriented X3, CN II-XII intact Psychiatric exam: Present: normal affect, normal mood Skin exam: Present: warm, dry, intact, normal color. Absent: rash Course Vital Signs 04/12/22 17:44 Temperature 98.7 F Pulse Rate 65 Respiratory 16 Rate Blood Pressure 120/79 O2 Sat by Pulse 100 Oximetry Procedures - Procedures Initial comment: Proparacaine drops were used for anesthesia. I was stained. Slit lamp examination performed. Patient has a small corneal ulceration noted at 12 o'clock position. Anterior chambers clear. No hyphema or hypopyon. Patient tolerated well Medical Decision Making - Medical Decision Making Case discussed in detail with the on-call eye doctor who will see the patient at 3 PM on Thursday. He advised Vigamox 1 drop to the affected eye every hour through the remainder today. Than every 4 hours until he is rechecked on Thursday. I did relay this treatment plan to the patient. All questions answered. Patient concurs. Patient was told to return to the ER for any signs or symptoms worsen. Told to return immediately if any other problems arise. All questions answered. Treatment plan discussed. Patient in agreement Every effort has been made to ensure accuracy of this dictation. However, due t o the limitations of electronic medical records and dictation devices, errors in charting still occur. Call placed for Dr. Adam at 6:10 PM Awaiting Vigamox from pharmacy [employer]ist Dr. Recio Disposition Clinical Impression: Corneal ulcer of left eye Disposition: HOME SELF-CARE Condition: Stable Instructions (If sedation given, give patient instructions): Corneal Ulcer (ED) Additional Instructions: Use the eye antibiotic drops every hour through the remainder of the day. Than every 4 hours until you're rechecked by the eye doctor on Thursday at 3 PM. Call the office at 9 AM to confirm your appointment time. Do not wear your contact lenses. Return to the ER immediately if any symptoms worsen, new symptoms arise, or any other problems develop. You can use Naprosyn as well as [id number] acetaminophen for further pain control. I did speak with the eye doctor in the ER today. They are expecting you at the office at 3 PM on Thursday. Follow-up without fail. Is patient prescribed a controlled substance at d/c from ED?: No Referrals: Paulina Adam MD [STAFF PHYSICIAN] - 04/14/22 3:00 pm Time of Disposition: 18:29
[2022-04-12] MEDS ORDERED: FLUORESCEIN STRIPS 1 MG STRIP BOTH EYES ONE (17:55)
[2022-04-12] MEDS ORDERED: PROPARACAINE 0.5% OPHTH DROPS 15 ML BTL BOTH EYES STA (17:55)
[2022-04-12] MEDS ORDERED: ACETAMINOPHEN TAB 500 MG TAB PO STA (18:07)
[2022-04-12] MEDS ORDERED: IBUPROFEN 600 MG TAB PO STA (18:07)
[2022-04-12] MEDS ORDERED: MOXIFLOXACIN HCL 0.5% DROPS 3 ML BTL LEFT EYE ONE (19:06)
== END 2022-04-12 19:10 | disposition home or self-care (01) ==
LOC: EC 17:15
DX: H16.002 Unspecified corneal ulcer, left eye (principal); F17.200 Nicotine dependence, unspecified, uncomplicated; Z91.040 Latex allergy status
CPT/HCPCS: 87070; 87205; 99283